=== PATIENT | female | born 1985 | race Caucasian/White ===

== ENCOUNTER 2018-07-04 11:27 | Inpatient (IN) | payer MEDICAID, OTHER ==
[2018-07-04] MEDS ORDERED: ACETAMINOPHEN 325 MG TABLET PO ONE (11:38)
[2018-07-04] MEDS ORDERED: NORMAL SALINE 1000 ML 1,000 ML IV ONE (12:33)
[2018-07-04] MEDS ORDERED: LORAZEPAM INJ 2 MG/1 ML VIAL IV ONE ×3 (12:43→16:47)
--- NOTE | 2018-07-04 12:44 | ER Document Report ---
ED General - General Mode of Arrival: Medic Information source: Patient <EMMANUELLE GOMEZANNIE - Last Filed: 07/04/18 19:07> <BERNIE MAYNARD - Last Filed: 07/04/18 19:09> - General Chief Complaint: Tremor Stated Complaint: ANXIETY Time Seen by Provider: 07/04/18 12:32 Notes: Patient is a 32 year old female with a history of bipolar disorder, borderline personality disorder, depression, anxiety, epilepsy presents to the emergency department complaining of anxiety and tremors further stating she is in alcohol withdrawal. Patient states she feels her nerves are shot due to her ex- taking custody of her kids and recently being evicted. She states she has a history of alcohol abuse and has been continuously consuming alcohol. She states she would constantly take shots from the moment she wakes up to the moment she goes to bed. She states she has not had a drink in 2 days and began to have tremors yesterday evening, worsening today. She also complains of diaphoresis, chills, auditory hallucinations, numbness of lips, sore throat, nausea, vomiting, chest pain, diffuse abdominal pain, constipation and a foul urine odor which is orange in appearance. Patient denies any diarrhea. Patient mentions her last seizure was approximately 1 year ago. (DIEGO GOMEZ ) - Related Data Allergies/Adverse Reactions: aripiprazole [From Abilify] Allergy (Verified 07/04/18 11:29) pregabalin [From Lyrica] Allergy (Verified 07/04/18 11:29) tramadol Allergy (Verified 07/04/18 11:29) Past Medical History - General Information source: Patient - Social History Smoking Status: Current Every Day Smoker Chew tobacco use (# tins/day): No Frequency of alcohol use: Heavy Drug Abuse: Marijuana Patient has suicidal ideation: Yes Patient has homicidal ideation: No Pulmonary Medical History: Reports: Hx Asthma Neurological Medical History: Reports: Hx Seizures GI Medical History: Reports: Hx Gastroesophageal Reflux Disease Musculoskeletal Medical History: Reports Hx Arthritis Psychiatric Medical History: Reports: Hx Depression - BIPOLAR BORDERLINE PERSONALITY Past Surgical History: Reports: Hx Section - X 3, Hx Hysterectomy <DIEGO GOMEZ - Last Filed: 07/04/18 19:07> - Social History Family History: Reviewed & Not Pertinent <BERNIE MAYNARD - Last Filed: 07/04/18 19:09> Review of Systems - Review of Systems Constitutional: See HPI, Chills, Diaphoresis EENT: See HPI, Throat pain Cardiovascular: See HPI, Chest pain Respiratory: No symptoms reported Gastrointestinal: See HPI, Nausea, Vomiting, Constipation Genitourinary: See HPI Female Genitourinary: No symptoms reported Musculoskeletal: See HPI Skin: No symptoms reported Hematologic/Lymphatic: No symptoms reported Neurological/Psychological: See HPI, Hallucinations, Numbness, Tingling -: Yes All other systems reviewed and negative <DIEGO GOMEZ - Last Filed: 07/04/18 19:07> Physical Exam <DIEGO GOMEZ - Last Filed: 07/04/18 19:07> <BERNIE MAYNARD - Last Filed: 07/04/18 19:09> - Vital signs Vitals: Temp Pulse Resp BP Pulse Ox 102.3 F H 162 H 20 137/95 H 94 07/04/18 11:34 07/04/18 11:34 07/04/18 11:34 07/04/18 11:34 07/04/18 11:34 - Notes Notes: GENERAL: Alert, anxious, actively shaking. No acute distress. HEAD: Normocephalic, atraumatic. EYES: Pupils equal, round, and reactive to light. Extraocular movements intact. ENT: Oral mucosa moist, tongue midline. Slight rhinorrhea. NECK: Full range of motion. Supple. Trachea midline. LUNGS: Clear to auscultation bilaterally, no wheezes, rales, or rhonchi. No respiratory distress. HEART: Tachycardic. Rate is approximately 120 at the time of my exam. No murmurs , gallops, or rubs. ABDOMEN: Soft, epigastric and periumbilical region tender to palpation. Non- distended. Bowel sounds present in all 4 quadrants. EXTREMITIES: Moves all 4 extremities spontaneously. No edema, radial and dorsalis pedis pulses 2/4 bilaterally. No cyanosis. NEUROLOGICAL: Alert and oriented x3. Normal speech. Active shaking consistent with tremors from alcohol withdrawal. PSYCH: Slightly tearful. Cooperative. SKIN: Hot to touch. Diaphoretic. No rashes or lesions noted. (DIEGO GOMEZ) Course - Laboratory Result Diagrams: 07/04/18 12:18 07/04/18 12:18 <DIEGO GOMEZ - Last Filed: 07/04/18 19:07> - Laboratory Result Diagrams: 07/04/18 12:18 07/04/18 12:18 <BERNIE MAYNARD - Last Filed: 07/04/18 19:09> - Re-evaluation Re-evalutation: 07/04/18 14:05 Patient began to seize when obtaining urine sample and fell face forward on the bathroom floor. There was active bleeding from nose. Patient was moved to a trauma bay and re-examined. (DIEGO GOMEZ) 07/04/18 16:09 On arrival patient was quite tremulous, warm to the touch, initial etiology was somewhat blurry as she appears to both be an alcohol withdrawal and have some form of infection. CBC shows low white blood cell count at 3.2, platelets low at 88 otherwise unremarkable, INR normal, venous blood gas shows an elevated pH surprisingly at 7.5 to, chemistries are grossly abnormal, sodium slightly low at 136.9 consistent with history of alcohol abuse, potassium low at 3.1, anion gap somewhat elevated at 21 possibly related to alcoholic ketosis, lactic acid normal at 1.3, magnesium low at 1.3, both potassium and magnesium have been repeated through the IV, total and direct bilirubin are both elevated at 3.7 and 2.2 respectively, AST, ALT and alkaline phosphatase are all elevated at home also at 746, 306 and 150 respectively. CK and CK-MB unremarkable, lipase normal, test negative, urinalysis shows moderate leukocyte esterase which helps to explain where her source of infection and fevers coming from. Patient has been started on Rocephin. The ultrasound of the abdomen was undertaken to make sure there is no biliary process going on causing the LFT abnormalities and the fever. This was negative except for fatty infiltration of the liver and biliary sludge. No indication for surgery at this time. Alcohol level is 0. While the patient was giving a urine specimen she had a seizure and fell forward and hit her face on the bathroom floor. Patient was postictal for approximately 2 minutes and then came to, had a small amount of bleeding from her left nostril that stopped on its own, small amount of bleeding from a small laceration to the left side of her lower lip. Bleeding then stopped, this was not amenable to approximation as it was so small it was not necessary. Patient also had a laceration noted to lip. Dentures were removed and appeared undamaged. No damage noted to her teeth. I did give 2 mg more of Ativan after this seizure. Patient appears somewhat better. Patient was discussed with Dr. Scherer from hospitalist and agrees to admit the patient to his service. 07/04/18 16:47 Patient is becoming more tremulous now, 2 more milligrams of Ativan will be given IV. (BERNIE MAYNARD) - Vital Signs Vital signs: Temp Pulse Resp BP Pulse Ox 102.3 F H 162 H 18 126/90 H 97 07/04/18 11:34 07/04/18 11:34 07/04/18 19:01 07/04/18 18:00 07/04/18 17:01 - Laboratory Laboratory results interpreted by me: 07/04/18 07/04/18 07/04/18 12:18 12:18 13:30 WBC 3.2 L RBC 3.63 L MCV 104 H MCH 36.2 H Plt Count 88 L Seg Neuts % (Manual) 88 H Lymphocytes % (Manual) 7 L Abs Lymphs (Manual) 0.3 L VBG pH 7.52 H VBG pCO2 34.4 L Sodium 136.9 L Potassium 3.1 L Chloride 90 L Anion Gap 21 H Creatinine 0.45 L Glucose 161 H Magnesium 1.3 L Total Bilirubin 3.7 H Direct Bilirubin 2.2 H AST 764 H ALT 306 H Alkaline Phosphatase 150 H Urine Protein Urine Ketones Urine Blood Urine Urobilinogen Ur Leukocyte Esterase 07/04/18 13:50 WBC RBC MCV MCH Plt Count Seg Neuts % (Manual) Lymphocytes % (Manual) Abs Lymphs (Manual) VBG pH VBG pCO2 Sodium Potassium Chloride Anion Gap Creatinine Glucose Magnesium Total Bilirubin Direct Bilirubin AST ALT Alkaline Phosphatase Urine Protein 30 H Urine Ketones 80 H Urine Blood SMALL H Urine Urobilinogen 4.0 H Ur Leukocyte Esterase MODERATE H - EKG Interpretation by Me Additional EKG results interpreted by me: 07/04/18 16:48 EKG shows sinus tachycardia at a rate of 103, normal axis, normal intervals, no ST segment elevations no T-wave inversions, there is significant baseline artifact related to tremors. No evidence of acute ischemic changes per my interpretation. (BERNIE MAYNARD) Critical Care Note - Critical Care Note Total time excluding time spent on procedures (mins): 45 <BERNIE MAYNARD - Last Filed: 07/04/18 19:09> Discharge <DIEGO GOMEZ - Last Filed: 07/04/18 19:07> - Discharge Admitting Provider: [facility] Admitted: ICU <BERNIE MAYNARD - Last Filed: 07/04/18 19:09> - Discharge Clinical Impression: Seizure, Hypokalemia, Hypomagnesemia Alcohol withdrawal Qualifiers: Complication of substance-induced condition: uncomplicated Qualified Code(s): F10.230 - Alcohol dependence with withdrawal, uncomplicated Urinary tract infection Qualifiers: Urinary tract infection type: acute pyelonephritis Qualified Code(s): N10 - Acute pyelonephritis Condition: Fair Disposition: ADMITTED INPATIENT Scribe Attestation: 07/04/18 19:09 I personally performed the services described in the documentation, reviewed and edited the documentation which was dictated to the scribe in my presence, and it accurately records my words and actions. (BERNIE MAYNARD)
[2018-07-04 12:46] LABS: HEMATOCRIT 37.6 % (36.0-47.0); HEMOGLOBIN 13.1 g/dL (12.0-15.5); MEAN CORPUSCULAR HEMOGLOBIN 36.2 pg (27.0-33.4); MEAN CORPUSCULAR VOLUME 104 fl (80-97); PROTHROMBIN TIME 13.7 SEC (11.4-15.4); RED BLOOD COUNT 3.63 10^6/uL (3.72-5.28); RED CELL DISTRIBUTION WIDTH 13.1 % (11.5-14.0); WHITE BLOOD COUNT 3.2 10^3/uL (4.0-10.5)
[2018-07-04 13:04] LABS: ALANINE AMINOTRANSFERASE 306 U/L (9-52); ALBUMIN 4.6 g/dL (3.5-5.0); ALKALINE PHOSPHATASE 150 U/L (38-126); BILIRUBIN,DIRECT 2.2 mg/dL (0.0-0.4); BILIRUBIN,TOTAL 3.7 mg/dL (0.2-1.3); BLOOD UREA NITROGEN 12 mg/dL (7-20); CALCIUM 9.8 mg/dL (8.4-10.2); CREATINE KINASE 75 U/L (30-135); GLUCOSE 161 mg/dL (75-110); LIPASE 211.6 U/L (23-300); TOTAL PROTEIN 7.1 g/dL (6.3-8.2)
[2018-07-04 13:05] LABS: ALCOHOL < 10 mg/dL (NONE DETECTED)
--- NOTE | 2018-07-04 13:05 | RADIOLOGY REPORT (SQ) ---
EXAM DESCRIPTION: CHEST SINGLE VIEW COMPLETED DATE/TIME: 07/04/2018 12:53 pm REASON FOR STUDY: fever, tremors COMPARISON: None. EXAM PARAMETERS: NUMBER OF VIEWS: One view. TECHNIQUE: Single frontal radiographic view of the chest acquired. RADIATION DOSE: NA LIMITATIONS: None. FINDINGS: LUNGS AND PLEURA: No opacities, masses or pneumothorax. No pleural effusion. MEDIASTINUM AND HILAR STRUCTURES: No masses. Contour normal. HEART AND VASCULAR STRUCTURES: Heart normal in size. Normal vasculature. BONES: No acute findings. HARDWARE: None in the chest. OTHER: No other significant finding. IMPRESSION: NO ACUTE RADIOGRAPHIC FINDING IN THE CHEST. TECHNICAL DOCUMENTATION: JOB ID: [id number] [employer]- All Rights Reserved Reading location - IP/workstation name: [email or web address]
[2018-07-04 13:09] LABS: CARBON DIOXIDE 26 mmol/L (22-30); CHLORIDE 90 mmol/L (98-107); SODIUM 136.9 mmol/L (137-145)
[2018-07-04 13:12] LABS: ANION GAP 21 (5-19); ASPARTATE AMINO TRANSFERASE 764 U/L (14-36); POTASSIUM 3.1 mmol/L (3.6-5.0)
--- NOTE | 2018-07-04 13:15 | EKG REPORT ---
SEVERITY:- ABNORMAL ECG - ABNORMAL T, CONSIDER ISCHEMIA, LATERAL LEADS BASLINE ARTIFACT.PROBABLY SINUS RHYTHM : Confirmed by: Faby Meier MD 04-Jul-2018 13:14:42
[2018-07-04 13:17] LABS: PLATELET COUNT 88 10^3/uL (150-450)
[2018-07-04] MEDS ORDERED: POTASSIUM CHLORIDE 20 MEQ/15 ML UDCUP PO ONE (13:17)
[2018-07-04 13:20] LABS: ABSOLUTE LYMPHOCYTES# (MANUAL) 0.3 10^3/uL (0.5-4.7); ABSOLUTE MONOCYTES # (MANUAL) 0.1 10^3/uL (0.1-1.4); ABSOLUTE NEUTROPHILS# (MANUAL) 2.8 10^3/uL (1.7-8.2); BASOPHILS % (MANUAL) 1 % (0-2); EOSINOPHILS % (MANUAL) 0 % (0-6); LYMPHOCYTES % (MANUAL) 7 % (13-45); MONOCYTES % (MANUAL) 3 % (3-13); SEGMENTED NEUTROPHILS % (MAN) 88 % (42-78); TOTAL CELLS COUNTED 100
[2018-07-04 13:23] LABS: ROULEAUX SLIGHT
[2018-07-04 13:24] LABS: HYPOCHROMASIA 1+; PLATELET COMMENT DECREASED; POLYCHROMASIA SLIGHT; STOMATOCYTES 2+
[2018-07-04] MEDS ORDERED: DIPH/PERTUSS(ACELL)/TETANUS VAC/PF 0.5 ML SYR (>=10YO) IM ONE (13:58)
[2018-07-04 14:02] LABS: VENOUS BLOOD BASE EXCESS 4.9 mmol/L; VENOUS BLOOD HCO3 27.5 mmol/L (20-32); VENOUS BLOOD PCO2 34.4 mmHg (35-63); VENOUS BLOOD PH 7.52 (7.30-7.42)
[2018-07-04] MEDS ORDERED: MAGNESIUM SULFATE/D5W 1 GM/100 ML RTUPB IV ONE (14:18)
[2018-07-04] MEDS ORDERED: LIDOCAINE 4%/TETRACAINE 0.5%/EPI 0.18% 5 ML TOPICAL SOLN TOP ONE (14:19)
[2018-07-04 14:22] LABS: AMORPHOUS SEDIMENT,URINE TRACE /HPF; APPEARANCE,URINE CLOUDY; BILIRUBIN,URINE NEGATIVE (NEGATIVE); COLOR,URINE AMBER; GLUCOSE, URINE NEGATIVE (NEGATIVE); KETONES,URINE 80 mg/dL (NEGATIVE); LEUKOCYTE ESTERASE,URINE MODERATE (NEGATIVE); NITRITE,URINE NEGATIVE (NEGATIVE); PROTEIN,URINE 30 mg/dL (NEGATIVE); URINE SPECIFIC GRAVITY 1.017
[2018-07-04] MEDS: POTASSI CL 20 MEQ/50 ML RIDER 20 MEQ/50 ML RTUPB IV SCH ×2 (15:08→17:16)
[2018-07-04] MEDS ORDERED: CEFTRIAXONE 1 GM/D5W RTU 1 GM/50 ML RTUPB IV ONE (15:10)
[2018-07-04] MEDS ORDERED: LEVETIRACETAM 1000 MG/NACL-ISO 1,000 MG/100 ML RTUPB IV ONE (15:10)
[2018-07-04] MEDS ORDERED: RINGERS SOLUTION,LACTATED 1,000 ML IV ONE (15:18)
--- NOTE | 2018-07-04 15:49 | RADIOLOGY REPORT (SQ) ---
EXAM DESCRIPTION: U/S ABDOMEN LIMITED W/O DOP COMPLETED DATE/TIME: 07/04/2018 3:06 pm REASON FOR STUDY: vomiting, fever, ETOH history, elevated LFTs COMPARISON: None. TECHNIQUE: Dynamic and static grayscale images acquired of the abdomen and recorded on PACS. Romyo adelaida selected color Doppler and spectral images recorded. LIMITATIONS: None. FINDINGS: PANCREAS: No masses. No peripancreatic edema or fluid collections. LIVER: Echotexture is coarse with increased echogenicity consistent with fatty infiltration. LIVER VASCULATURE: Normal directional flow of the main portal vein. GALLBLADDER: No stones. There is increased echogenicity in the dependent portion of the gallbladder lumen consistent with biliary sludge. Normal wall thickness. No pericholecystic fluid. ULTRASOUND-DETECTED HARMON'S SIGN: Negative. INTRAHEPATIC DUCTS AND COMMON DUCT: CBD and intrahepatic ducts normal caliber. No filling defects. INFERIOR VENA CAVA: Normal flow. AORTA: No aneurysm. RIGHT KIDNEY: 12.0 cm in length Normal echogenicity. No solid or suspicious masses. No hydrone phrosis. No calcifications. PERITONEAL AND RIGHT PLEURAL SPACE: No ascites or effusions. OTHER: No other significant finding. IMPRESSION: FATTY INFILTRATION OF THE LIVER. No gallstones are identified. There is evidence for b iliary sludge. Other findings as noted above. TECHNICAL DOCUMENTATION: JOB ID: [id number] [employer]- All Rights Reserved Reading location - IP/workstation name: [email or web address]
[2018-07-04] MEDS ORDERED: CEFTRIAXONE INJ 1000 MG VIAL IV ONE (16:30)
[2018-07-04] MEDS ORDERED: CEFTRIAXONE INJ 1000 MG VIAL ONE (16:31)
--- NOTE | 2018-07-04 17:05 | PDOC H&P ---
History of Present Illness Admission Date/PCP: Seizure History of Present Illness: MONIQUE ROJAS is a 32 year old female who is an alcoholic. She drinks every day several drinks a day for several years. Apparently she is getting into a divorce and her is trying to take custody of her kids so she decided to stop drinking cold turkey 2 days ago. She was started to be anxious and tremulous and earlier today she developed a seizure and actually in the emergency room she apparently fell on her face and lacerated her lips. Past Medical History Pulmonary Medical History: Reports: Asthma Neurological Medical History: Reports: Seizures GI Medical History: Reports: Gastroesophageal Reflux Disease Musculoskeltal Medical History: Reports: Arthritis Psychiatric Medical History: Reports: Depression - BIPOLAR BORDERLINE PERSONALITY Past Surgical History Past Surgical History: Reports: Section - X 3, Hysterectomy Social History Smoking Status: Current Every Day Smoker Family History Family History: Reviewed & Not Pertinent Parental Family History Reviewed: Yes Children Family History Reviewed: Yes Sibling(s) Family History Reviewed.: Yes Medication/Allergy Home Medications: Sertraline HCl [Zoloft] 25 mg PO DAILY 07/04/18 Allergies/Adverse Reactions: aripiprazole [From Abilify] Allergy (Verified 07/04/18 11:29) pregabalin [From Lyrica] Allergy (Verified 07/04/18 11:29) tramadol Allergy (Verified 07/04/18 11:29) Review of Systems All systems: reviewed and no additional remarkable complaints except as stated Physical Exam Vital Signs: Temp Pulse Resp BP Pulse Ox 102.3 F H 162 H 17 125/92 H 97 07/04/18 11:34 07/04/18 11:34 07/04/18 16:00 07/04/18 15:02 07/04/18 16:00 Intake & Output 07/03/18 07/04/18 07/05/18 06:59 06:59 06:59 Intake Total 2200 Balance 2200 Weight 89 lb 15.178 oz General appearance: PRESENT: no acute distress, cooperative Head exam: PRESENT: atraumatic Eye exam: PRESENT: EOMI, PERRLA. ABSENT: conjunctival injection, nystagmus, periorbital swelling Ear exam: PRESENT: normal external ear exam Mouth exam: PRESENT: other - The lips are swollen with lacerations Throat exam: ABSENT: post pharyngeal erythema Neck exam: ABSENT: carotid bruit, JVD, lymphadenopathy, thyromegaly Respiratory exam: PRESENT: clear to auscultation sarai. ABSENT: rales, rhonchi, wheezes Cardiovascular exam: PRESENT: RRR. ABSENT: diastolic murmur, rubs, systolic murmur Pulses: PRESENT: normal dorsalis pedis pul GI/Abdominal exam: PRESENT: normal bowel sounds, soft. ABSENT: distended, guarding, mass, organolmegaly, rebound, tenderness Extremities exam: PRESENT: full ROM. ABSENT: calf tenderness, clubbing, pedal edema Neurological exam: PRESENT: alert, awake, oriented to person, oriented to place , oriented to time, oriented to situation, CN II-XII grossly intact. ABSENT: motor sensory deficit Focused psych exam: PRESENT: psychomotor agitation, restlessness Results Laboratory Results: 07/04/18 12:18 07/04/18 12:18 07/04/18 07/04/18 07/04/18 12:18 12:18 12:18 WBC 3.2 L RBC 3.63 L Hgb 13.1 Hct 37.6 MCV 104 H MCH 36.2 H MCHC 35.0 RDW 13.1 Plt Count 88 L Seg Neutrophils % Not Reportable Lymphocytes % Not Reportable Monocytes % Not Reportable Eosinophils % Not Reportable Basophils % Not Reportable Absolute Neutrophils Not Reportable Absolute Lymphocytes Not Reportable Absolute Monocytes Not Reportable Absolute Eosinophils Not Reportable Absolute Basophils Not Reportable VBG pH VBG pCO2 VBG HCO3 VBG Base Excess Sodium 136.9 L Potassium 3.1 L Chloride 90 L Carbon Dioxide 26 Anion Gap 21 H BUN 12 Creatinine 0.45 L Est GFR ( Amer) > 60 Est GFR (Non-Af Amer) > 60 Glucose 161 H Lactic Acid Calcium 9.8 Magnesium 1.3 L Total Bilirubin 3.7 H AST 764 H ALT 306 H Alkaline Phosphatase 150 H Total Protein 7.1 Albumin 4.6 Lipase 211.6 Serum HCG, Qual NEGATIVE Urine Color Urine Appearance Urine pH Ur Specific [place] Urine Protein Urine Glucose (UA) Urine Ketones Urine Blood Urine Nitrite Ur Leukocyte Esterase Urine WBC (Auto) Urine RBC (Auto) 07/04/18 07/04/18 07/04/18 13:30 13:30 13:50 WBC RBC Hgb Hct MCV MCH MCHC RDW Plt Count Seg Neutrophils % Lymphocytes % Monocytes % Eosinophils % Basophils % Absolute Neutrophils Absolute Lymphocytes Absolute Monocytes Absolute Eosinophils Absolute Basophils VBG pH 7.52 H VBG pCO2 34.4 L VBG HCO3 27.5 VBG Base Excess 4.9 Sodium Potassium Chloride Carbon Dioxide Anion Gap BUN Creatinine Est GFR ( Amer) Est GFR (Non-Af Amer) Glucose Lactic Acid 1.3 Calcium Magnesium Total Bilirubin AST ALT Alkaline Phosphatase Total Protein Albumin Lipase Serum HCG, Qual Urine Color HOSSEIN Urine Appearance CLOUDY Urine pH 6.0 Ur Specific [place] 1.017 Urine Protein 30 H Urine Glucose (UA) NEGATIVE Urine Ketones 80 H Urine Blood SMALL H Urine Nitrite NEGATIVE Ur Leukocyte Esterase MODERATE H Urine WBC (Auto) 93 Urine RBC (Auto) 6 07/04/18 07/04/18 12:18 13:30 Creatine Kinase 75 CK-MB (CK-2) < 0.22 Impressions: Chest X-Ray 07/04/18 12:33 IMPRESSION: NO ACUTE RADIOGRAPHIC FINDING IN THE CHEST. Abdomen Ultrasound 07/04/18 13:17 IMPRESSION: FATTY INFILTRATION OF THE LIVER. No gallstones are identified. There is evidence for biliary sludge. Other findings as noted above. Assessment & Plan - Diagnosis (1) Alcohol withdrawal Qualifiers: Complication of substance-induced condition: uncomplicated Qualified Code(s ): F10.230 - Alcohol dependence with withdrawal, uncomplicated Is this a current diagnosis for this admission?: Yes Plan: Patient will be admitted to the ICU for close observation She had a seizure in the emergency room that was witnessed Treat with IV fluid hydration, IV thiamine and folic acid and multivitamin supplements Due to the severity of her withdrawal symptoms and amount of alcohol she drinks we will start her on scheduled Ativan every 4 hours We will decrease Ativan dose slowly over the next few days We will monitor for further signs or symptoms of withdrawal (2) Hypokalemia Is this a current diagnosis for this admission?: Yes Plan: Replace in the emergency room and we will monitor (3) Hypomagnesemia Is this a current diagnosis for this admission?: Yes Plan: Replaced and we will monitor (4) Seizure Is this a current diagnosis for this admission?: Yes Plan: Most likely due to alcohol withdrawal Will admit the patient to ICU with seizure precautions Ativan scheduled as above (5) Urinary tract infection Qualifiers: Urinary tract infection type: acute pyelonephritis Qualified Code(s): N10 - Acute pyelonephritis Is this a current diagnosis for this admission?: Yes Plan: Empiric ceftriaxone Check urine culture (6) Transaminasemia Is this a current diagnosis for this admission?: Yes Plan: Continue to alcohol abuse Ultrasound reviewed We will trend liver enzymes
[2018-07-04] MEDS: LORAZEPAM INJ 2 MG/1 ML VIAL IV SCH ×2 (17:56→20:42)
[2018-07-04] MEDS: NORMAL SALINE 1000 ML 1,000 ML IV PRN (19:08)
[2018-07-04] MEDS: THIAMINE HCL 100 MG, FOLIC ACID 1 MG in NORMAL SALINE 250 ML IV SCH (20:44)
[2018-07-05] MEDS: LORAZEPAM INJ 2 MG/1 ML VIAL IV SCH ×3 (02:04→09:58)
[2018-07-05] MEDS: NORMAL SALINE 1000 ML 1,000 ML IV PRN ×2 (02:07→15:52)
[2018-07-05 03:59] LABS: HEMATOCRIT 36.3 % (36.0-47.0); HEMOGLOBIN 12.6 g/dL (12.0-15.5); MEAN CORPUSCULAR HEMOGLOBIN 36.1 pg (27.0-33.4); MEAN CORPUSCULAR HGB CONC 34.7 g/dL (32.0-36.0); MEAN CORPUSCULAR VOLUME 104 fl (80-97); RED BLOOD COUNT 3.49 10^6/uL (3.72-5.28); RED CELL DISTRIBUTION WIDTH 13.2 % (11.5-14.0); WHITE BLOOD COUNT 2.9 10^3/uL (4.0-10.5)
[2018-07-05 04:14] LABS: ALANINE AMINOTRANSFERASE 268 U/L (9-52); ALBUMIN 3.9 g/dL (3.5-5.0); ALKALINE PHOSPHATASE 117 U/L (38-126); ANION GAP 13 (5-19); ASPARTATE AMINO TRANSFERASE 690 U/L (14-36); BILIRUBIN,DIRECT 2.1 mg/dL (0.0-0.4); BILIRUBIN,TOTAL 3.3 mg/dL (0.2-1.3); BLOOD UREA NITROGEN 5 mg/dL (7-20); CALCIUM 9.2 mg/dL (8.4-10.2); CARBON DIOXIDE 26 mmol/L (22-30); CHLORIDE 100 mmol/L (98-107); GLUCOSE 86 mg/dL (75-110); POTASSIUM 3.4 mmol/L (3.6-5.0); SODIUM 138.6 mmol/L (137-145); TOTAL PROTEIN 6.3 g/dL (6.3-8.2)
[2018-07-05 04:21] LABS: PLATELET COUNT 52 10^3/uL (150-450)
[2018-07-05] MEDS ORDERED: MAGNESIUM SULFATE/D5W 1 GM/100 ML RTUPB IV ONE (05:30)
[2018-07-05] MEDS ORDERED: POTASSIUM CHLORIDE 10 MEQ CAPSULE.ER PO ONE ×2 (06:00→07:30)
[2018-07-05] MEDS: SERTRALINE HCL 50 MG TABLET PO SCH (09:57)
[2018-07-05] MEDS ORDERED: CEFTRIAXONE 1 GM/D5W RTU 1 GM/50 ML RTUPB IV SCH (10:00)
[2018-07-05] MEDS ORDERED: CEFTRIAXONE SODIUM 1,000 MG in DEXTROSE 5%-WATER 50 ML IV SCH (10:00)
[2018-07-05] MEDS ORDERED: CEFTRIAXONE SODIUM 1,000 MG in NORMAL SALINE 50 ML IV SCH (10:00)
[2018-07-05] MEDS: ENOXAPARIN SODIUM INJ 30 MG/0.3 ML DISP.SYRIN SUBCUT SCH (10:00)
[2018-07-05] MEDS ORDERED: POTASSI CL 20 MEQ/50 ML RIDER 20 MEQ/50 ML RTUPB IV SCH (12:30)
[2018-07-05] MEDS ORDERED: VANCOMYCIN HCL 0 MG in DEXTROSE 5%-WATER 250 ML IV NR (12:45)
[2018-07-05] MEDS: VANCOMYCIN HCL 500 MG in NORMAL SALINE 100 ML IV SCH ×2 (14:15→22:06)
[2018-07-05] MEDS: NICOTINE 14 MG/24 HR PATCH.TD24 TD SCH (18:54)
[2018-07-05] MEDS: THIAMINE HCL 100 MG, FOLIC ACID 1 MG in NORMAL SALINE 250 ML IV SCH (22:06)
[2018-07-05] MEDS: LORAZEPAM INJ 2 MG/1 ML VIAL IV PRN (22:06)
--- NOTE | 2018-07-05 23:10 | PDOC PROGRESS REPORT ---
Subjective Progress Note for:: 07/05/18 Subjective:: The patient is quite lethargic, but is arouseable. No new complaints. Reason For Visit: ALCOHOL WITHDRAWL SYNDROME,SEIZURE,URINARY TRACT Physical Exam Vital Signs: Temp Pulse Resp BP Pulse Ox 98.4 F 105 H 17 123/88 H 97 07/05/18 17:27 07/05/18 17:27 07/05/18 18:00 07/05/18 17:27 07/05/18 17:27 Intake & Output 07/04/18 07/05/18 07/06/18 06:59 06:59 06:59 Intake Total 1099.2 1630 Output Total 1100 1350 Balance -0.8 280 Weight 40.5 kg General appearance: PRESENT: no acute distress, cooperative Head exam: PRESENT: normocephalic, other - Ecchymoses to left upper and lower lip. Eye exam: PRESENT: EOMI, other - no scleral injection. ABSENT: scleral icterus Neck exam: ABSENT: JVD, lymphadenopathy, tracheostomy Respiratory exam: PRESENT: other - No increased work of breathing. No wheezes, rales, or rhonchi. No tactile fremitus. Cardiovascular exam: PRESENT: other - No lateral PMI. No lateal PMI. Pulses: PRESENT: normal carotid pulses, normal dorsalis pedis pul GI/Abdominal exam: PRESENT: normal bowel sounds, soft. ABSENT: distended, mass , organolmegaly, tenderness Extremities exam: ABSENT: clubbing, joint swelling, tenderness Musculoskeletal exam: ABSENT: deformity, normal inspection, tenderness Neurological exam: PRESENT: alert, altered - Lethargic., awake, oriented to person, oriented to place, oriented to time, oriented to situation Skin exam: PRESENT: dry, intact, warm Results Laboratory Results: 07/05/18 03:48 07/05/18 03:48 07/05/18 07/05/18 03:48 03:48 WBC 2.9 L RBC 3.49 L Hgb 12.6 Hct 36.3 MCV 104 H MCH 36.1 H MCHC 34.7 RDW 13.2 Plt Count 52 L Sodium 138.6 Potassium 3.4 L Chloride 100 Carbon Dioxide 26 Anion Gap 13 BUN 5 L Creatinine 0.34 L Est GFR ( Amer) > 60 Est GFR (Non-Af Amer) > 60 Glucose 86 Calcium 9.2 Magnesium 1.9 Total Bilirubin 3.3 H AST 690 H ALT 268 H Alkaline Phosphatase 117 Total Protein 6.3 Albumin 3.9 Impressions: Chest X-Ray 07/04/18 12:33 IMPRESSION: NO ACUTE RADIOGRAPHIC FINDING IN THE CHEST. Abdomen Ultrasound 07/04/18 13:17 IMPRESSION: FATTY INFILTRATION OF THE LIVER. No gallstones are identified. There is evidence for biliary sludge. Other findings as noted above. Assessment & Plan - Diagnosis (1) Alcohol withdrawal Qualifiers: Complication of substance-induced condition: uncomplicated Qualified Code(s ): F10.230 - Alcohol dependence with withdrawal, uncomplicated Is this a current diagnosis for this admission?: Yes Plan: PRN ativan. Seiure precautions. No tremors. (2) Hypokalemia Is this a current diagnosis for this admission?: Yes Plan: Supplement and monitor. (3) Hypomagnesemia Is this a current diagnosis for this admission?: Yes Plan: Supplement and monitor. (4) Seizure Is this a current diagnosis for this admission?: Yes Plan: Secondary to ETOH withdrawal. (5) Transaminasemia Is this a current diagnosis for this admission?: Yes Plan: Alcoholic hepatitis. (6) Urinary tract infection Qualifiers: Urinary tract infection type: acute pyelonephritis Qualified Code(s): N10 - Acute pyelonephritis Is this a current diagnosis for this admission?: Yes Plan: IV antibiotics. - Time Time Spent with patient: 25-34 minutes Medications reviewed and adjusted accordingly: Yes - Inpatient Certification Based on my medical assessment, after consideration of the patient's comorbidities, presenting symptoms, or acuity I expect that the services needed warrant INPATIENT care.: Yes I certify that my determination is in accordance with my understanding of Medicare's requirements for reasonable and necessary INPATIENT services [42 CFR 412.3e].: Yes Medical Necessity: Need Close Monitoring Due to Risk of Patient Decompensation
[2018-07-06] MEDS: LORAZEPAM INJ 2 MG/1 ML VIAL IV PRN ×7 (03:02→22:38)
[2018-07-06] MEDS: VANCOMYCIN HCL 500 MG in NORMAL SALINE 100 ML IV SCH ×2 (05:10→15:28)
[2018-07-06] MEDS: ENOXAPARIN SODIUM INJ 30 MG/0.3 ML DISP.SYRIN SUBCUT SCH (10:15)
[2018-07-06] MEDS: SERTRALINE HCL 50 MG TABLET PO SCH (10:31)
[2018-07-06] MEDS: NICOTINE 14 MG/24 HR PATCH.TD24 TD SCH (10:32)
[2018-07-06 15:30] LABS: VANCOMYCIN,TROUGH < 5.0 ug/mL (5.0-20.0)
--- NOTE | 2018-07-06 19:07 | PDOC PROGRESS REPORT ---
Subjective Progress Note for:: 07/06/18 Subjective:: This morning the patient is again asserting that she wishes to leave the hospital AMA. She is tremulous and is pacing the floor appearing anxious. Reason For Visit: ALCOHOL WITHDRAWL SYNDROME,SEIZURE,URINARY TRACT Physical Exam Vital Signs: Temp Pulse Resp BP Pulse Ox 98.9 F 116 H 16 118/88 H 98 07/06/18 10:47 07/06/18 10:47 07/06/18 10:47 07/06/18 10:47 07/06/18 10:47 Intake & Output 07/05/18 07/06/18 07/07/18 06:59 06:59 06:59 Intake Total 1099.2 1830 100 Output Total 1100 2050 Balance -0.8 -220 100 Weight 40.5 kg 41.3 kg General appearance: PRESENT: other - The patient appears tremulous and anxious. Respiratory exam: PRESENT: other - No increased work of breathing. No wheezes, rales, or rhonchi. No tactile fremitus. Cardiovascular exam: PRESENT: RRR, tachycardia, other - No lateral PMI. No thrills.. ABSENT: gallop, rubs, systolic murmur Pulses: PRESENT: normal dorsalis pedis pul GI/Abdominal exam: PRESENT: normal bowel sounds, soft, other - Scaffoid.. ABSENT: hernia, mass, organolmegaly, tenderness Rectal exam: PRESENT: deferred Extremities exam: ABSENT: calf tenderness, joint swelling, tenderness Musculoskeletal exam: PRESENT: normal inspection. ABSENT: deformity, tenderness Neurological exam: PRESENT: alert, awake, oriented to person, oriented to place , oriented to time, oriented to situation, CN II-XII grossly intact. ABSENT: reflexes normal - Hyper-reflexia, motor sensory deficit Psychiatric exam: PRESENT: agitated, anxious, other - Tremulous Skin exam: PRESENT: dry, intact, warm, other - Ecchymoses to the patient's left lip and lower face. Results Laboratory Results: 07/05/18 03:48 07/05/18 03:48 Impressions: Chest X-Ray 07/04/18 12:33 IMPRESSION: NO ACUTE RADIOGRAPHIC FINDING IN THE CHEST. Abdomen Ultrasound 07/04/18 13:17 IMPRESSION: FATTY INFILTRATION OF THE LIVER. No gallstones are identified. There is evidence for biliary sludge. Other findings as noted above. Assessment & Plan - Diagnosis (1) Alcohol withdrawal Qualifiers: Complication of substance-induced condition: uncomplicated Qualified Code(s ): F10.230 - Alcohol dependence with withdrawal, uncomplicated Is this a current diagnosis for this admission?: Yes Plan: The patient continues to require high doses of IV ativan. At my visit she appears anxious and tremulous. (2) Hypokalemia Is this a current diagnosis for this admission?: Yes Plan: Supplement and monitor. (3) Hypomagnesemia Is this a current diagnosis for this admission?: Yes Plan: Supplement and monitor. (4) Seizure Is this a current diagnosis for this admission?: Yes Plan: Secondary to ETOH withdrawal. (5) Transaminasemia Is this a current diagnosis for this admission?: Yes Plan: Alcoholic hepatitis. (6) Urinary tract infection Qualifiers: Urinary tract infection type: acute pyelonephritis Qualified Code(s): N10 - Acute pyelonephritis Is this a current diagnosis for this admission?: Yes Plan: IV antibiotics. - Time Time Spent with patient: 35 or more minutes Medications reviewed and adjusted accordingly: Yes - Plan Summary Plan Summary: I discussed the patient's wish to leave AMA with the patient. I explained to her that she is still in withdrawal and would be at high risk for further and possibly fatal seizures if she left before she was out of withdrawal. She has agreed to remain inpatien to receive treatment.
[2018-07-06 19:37] LABS: ANION GAP 15 (5-19); BLOOD UREA NITROGEN 8 mg/dL (7-20); CALCIUM 9.9 mg/dL (8.4-10.2); CARBON DIOXIDE 23 mmol/L (22-30); CHLORIDE 100 mmol/L (98-107); GLUCOSE 77 mg/dL (75-110); POTASSIUM 3.4 mmol/L (3.6-5.0)
[2018-07-06] MEDS: THIAMINE HCL 100 MG, FOLIC ACID 1 MG in NORMAL SALINE 250 ML IV SCH (21:30)
[2018-07-06] MEDS ORDERED: VANCOMYCIN HCL 1,250 MG in DEXTROSE 5%-WATER 250 ML IV SCH (22:00)
[2018-07-07] MEDS: LORAZEPAM INJ 2 MG/1 ML VIAL IV PRN ×4 (01:23→21:46)
[2018-07-07] MEDS: ENOXAPARIN SODIUM INJ 30 MG/0.3 ML DISP.SYRIN SUBCUT SCH (09:36)
[2018-07-07] MEDS: NICOTINE 14 MG/24 HR PATCH.TD24 TD SCH (10:24)
[2018-07-07] MEDS: SERTRALINE HCL 50 MG TABLET PO SCH (10:24)
[2018-07-07 12:30] LABS: ABSOLUTE EOSINOPHILS # (AUTO) 0.1 10^3/uL (0.0-0.6); ABSOLUTE LYMPHOCYTES (AUTO) 0.5 10^3/uL (0.5-4.7); ABSOLUTE MONOCYTES (AUTO) 0.4 10^3/uL (0.1-1.4); ABSOLUTE NEUT (AUTO) 1.9 10^3/uL (1.7-8.2); BASOPHILS % (AUTO) 0.9 % (0-2); EOSINOPHILS % (AUTO) 4.6 % (0-6); HEMATOCRIT 35.2 % (36.0-47.0); HEMOGLOBIN 12.4 g/dL (12.0-15.5); LYMPHOCYTES % (AUTO) 17.8 % (13-45); MEAN CORPUSCULAR HEMOGLOBIN 37.3 pg (27.0-33.4); MEAN CORPUSCULAR HGB CONC 35.3 g/dL (32.0-36.0); MEAN CORPUSCULAR VOLUME 106 fl (80-97); MONOCYTES % (AUTO) 13.1 % (3-13); RED BLOOD COUNT 3.34 10^6/uL (3.72-5.28); RED CELL DISTRIBUTION WIDTH 12.5 % (11.5-14.0); SEGMENTED NEUTROPHILS % (AUTO) 63.6 % (42-78); TOTAL CELLS COUNTED % (AUTO) 100 %
[2018-07-07] MEDS: PIPERACILLIN SODIUM/TAZOBACTAM 3.375 GM in NORMAL SALINE 100 ML IV SCH ×3 (12:55→23:47)
[2018-07-07 12:56] LABS: ALANINE AMINOTRANSFERASE 157 U/L (9-52); ALBUMIN 3.5 g/dL (3.5-5.0); ALKALINE PHOSPHATASE 94 U/L (38-126); ANION GAP 12 (5-19); ASPARTATE AMINO TRANSFERASE 153 U/L (14-36); BILIRUBIN,DIRECT 1.7 mg/dL (0.0-0.4); BILIRUBIN,TOTAL 2.6 mg/dL (0.2-1.3); BLOOD UREA NITROGEN 10 mg/dL (7-20); CALCIUM 9.8 mg/dL (8.4-10.2); CARBON DIOXIDE 26 mmol/L (22-30); CHLORIDE 101 mmol/L (98-107); GLUCOSE 99 mg/dL (75-110); POTASSIUM 3.6 mmol/L (3.6-5.0); SODIUM 139.3 mmol/L (137-145); TOTAL PROTEIN 5.8 g/dL (6.3-8.2)
[2018-07-07 12:58] LABS: PLATELET COUNT 66 10^3/uL (150-450)
--- NOTE | 2018-07-07 17:51 | PDOC PROGRESS REPORT ---
Subjective Progress Note for:: 07/07/18 Subjective:: No new complaints. Reason For Visit: ALCOHOL WITHDRAWL SYNDROME,SEIZURE,URINARY TRACT Physical Exam Vital Signs: Temp Pulse Resp BP Pulse Ox 98.4 F 92 18 115/83 100 07/07/18 12:00 07/07/18 12:00 07/07/18 12:00 07/07/18 12:00 07/07/18 12:00 Intake & Output 07/06/18 07/07/18 07/08/18 06:59 06:59 06:59 Intake Total 2081 1235.2 100 Output Total 2050 Balance 31 1235.2 100 Weight 41.3 kg 42.6 kg General appearance: PRESENT: no acute distress, cooperative, thin Respiratory exam: PRESENT: other - No increased work of breathing. No wheezes, rales, or rhonchi. No tactile fremitus. Cardiovascular exam: PRESENT: RRR, other - No lateral PMI. No thrills.. ABSENT : gallop, rubs, systolic murmur Pulses: PRESENT: normal dorsalis pedis pul GI/Abdominal exam: PRESENT: normal bowel sounds, soft. ABSENT: hernia, mass, organolmegaly, tenderness Rectal exam: PRESENT: deferred Extremities exam: ABSENT: clubbing, pedal edema, tenderness Musculoskeletal exam: PRESENT: normal inspection. ABSENT: deformity, dislocation Neurological exam: PRESENT: alert, awake, oriented to person, oriented to place , oriented to time, oriented to situation, CN II-XII grossly intact. ABSENT: motor sensory deficit Psychiatric exam: PRESENT: anxious, depressed Skin exam: PRESENT: dry, intact, warm Results Laboratory Results: 07/07/18 12:07 07/07/18 12:07 07/06/18 07/07/18 07/07/18 13:57 12:07 12:07 WBC 3.0 L RBC 3.34 L Hgb 12.4 Hct 35.2 L MCV 106 H MCH 37.3 H MCHC 35.3 RDW 12.5 Plt Count 66 L Seg Neutrophils % 63.6 Lymphocytes % 17.8 Monocytes % 13.1 H Eosinophils % 4.6 Basophils % 0.9 Absolute Neutrophils 1.9 Absolute Lymphocytes 0.5 Absolute Monocytes 0.4 Absolute Eosinophils 0.1 Absolute Basophils 0.0 Sodium 138.0 139.3 Potassium 3.4 L 3.6 Chloride 100 101 Carbon Dioxide 23 26 Anion Gap 15 12 BUN 8 10 Creatinine 0.42 L 0.48 L Est GFR ( Amer) > 60 > 60 Est GFR (Non-Af Amer) > 60 > 60 Glucose 77 99 Calcium 9.9 9.8 Magnesium 1.9 Total Bilirubin 2.6 H AST 153 H ALT 157 H Alkaline Phosphatase 94 Total Protein 5.8 L Albumin 3.5 Impressions: Chest X-Ray 07/04/18 12:33 IMPRESSION: NO ACUTE RADIOGRAPHIC FINDING IN THE CHEST. Abdomen Ultrasound 07/04/18 13:17 IMPRESSION: FATTY INFILTRATION OF THE LIVER. No gallstones are identified. There is evidence for biliary sludge. Other findings as noted above. Assessment & Plan - Diagnosis (1) Alcohol withdrawal Qualifiers: Complication of substance-induced condition: uncomplicated Qualified Code(s ): F10.230 - Alcohol dependence with withdrawal, uncomplicated Is this a current diagnosis for this admission?: Yes Plan: The patient continues to require high doses of IV ativan. At my visit she appears anxious and tremulous. (2) Hypokalemia Is this a current diagnosis for this admission?: Yes Plan: Resolved. Will continue to monitor. (3) Hypomagnesemia Is this a current diagnosis for this admission?: Yes Plan: Resolved. (4) Seizure Is this a current diagnosis for this admission?: Yes Plan: Secondary to ETOH withdrawal. IV ativan prn. (5) Transaminasemia Is this a current diagnosis for this admission?: Yes Plan: Alcoholic hepatitis. LFT's declining. (6) Urinary tract infection Qualifiers: Urinary tract infection type: acute pyelonephritis Qualified Code(s): N10 - Acute pyelonephritis Is this a current diagnosis for this admission?: Yes Plan: Urine culture has grown out E. Coli. IV zosyn. (7) Gram-positive bacteremia Is this a current diagnosis for this admission?: Yes Plan: Will continue zosyn and vancomycin. Echocardiogram pending. - Time Time Spent with patient: 25-34 minutes Medications reviewed and adjusted accordingly: Yes - Inpatient Certification Based on my medical assessment, after consideration of the patient's comorbidities, presenting symptoms, or acuity I expect that the services needed warrant INPATIENT care.: Yes I certify that my determination is in accordance with my understanding of Medicare's requirements for reasonable and necessary INPATIENT services [42 CFR 412.3e].: Yes Medical Necessity: Need Close Monitoring Due to Risk of Patient Decompensation, Need for IV Antibiotics, Risk of Complication if Not Cared For in Hospital
[2018-07-07] MEDS: THIAMINE HCL 100 MG, FOLIC ACID 1 MG in NORMAL SALINE 250 ML IV SCH (21:41)
[2018-07-07] MEDS: POTASSIUM CHLORIDE 10 MEQ CAPSULE.ER PO SCH (21:45)
[2018-07-08] MEDS: POTASSIUM CHLORIDE 10 MEQ CAPSULE.ER PO SCH (01:05)
[2018-07-08] MEDS: LORAZEPAM INJ 2 MG/1 ML VIAL IV PRN (01:06)
[2018-07-08] MEDS: PIPERACILLIN SODIUM/TAZOBACTAM 3.375 GM in NORMAL SALINE 100 ML IV SCH ×3 (06:16→17:36)
[2018-07-08 06:17] LABS: ABSOLUTE BASOPHILS # (AUTO) 0.1 10^3/uL (0.0-0.2); ABSOLUTE EOSINOPHILS # (AUTO) 0.1 10^3/uL (0.0-0.6); ABSOLUTE LYMPHOCYTES (AUTO) 0.8 10^3/uL (0.5-4.7); ABSOLUTE MONOCYTES (AUTO) 0.5 10^3/uL (0.1-1.4); ABSOLUTE NEUT (AUTO) 1.5 10^3/uL (1.7-8.2); BASOPHILS % (AUTO) 2.7 % (0-2); EOSINOPHILS % (AUTO) 4.2 % (0-6); HEMATOCRIT 34.3 % (36.0-47.0); HEMOGLOBIN 11.9 g/dL (12.0-15.5); MEAN CORPUSCULAR HGB CONC 34.7 g/dL (32.0-36.0); MEAN CORPUSCULAR VOLUME 107 fl (80-97); MONOCYTES % (AUTO) 15.5 % (3-13); RED BLOOD COUNT 3.22 10^6/uL (3.72-5.28); RED CELL DISTRIBUTION WIDTH 12.7 % (11.5-14.0); SEGMENTED NEUTROPHILS % (AUTO) 50.6 % (42-78); TOTAL CELLS COUNTED % (AUTO) 100 %
[2018-07-08 06:39] LABS: ANION GAP 11 (5-19); BLOOD UREA NITROGEN 11 mg/dL (7-20); CALCIUM 9.7 mg/dL (8.4-10.2); CARBON DIOXIDE 26 mmol/L (22-30); CHLORIDE 104 mmol/L (98-107); GLUCOSE 95 mg/dL (75-110); POTASSIUM 4.1 mmol/L (3.6-5.0); SODIUM 141.3 mmol/L (137-145)
[2018-07-08 07:57] LABS: PLATELET COUNT 87 10^3/uL (150-450)
[2018-07-08] MEDS: NICOTINE 14 MG/24 HR PATCH.TD24 TD SCH (09:39)
[2018-07-08] MEDS: ENOXAPARIN SODIUM INJ 30 MG/0.3 ML DISP.SYRIN SUBCUT SCH (09:39)
[2018-07-08] MEDS: SERTRALINE HCL 50 MG TABLET PO SCH (09:39)
[2018-07-08] MEDS: LORAZEPAM 1 MG TABLET PO PRN ×2 (13:43→19:51)
[2018-07-08] MEDS: NORMAL SALINE 1000 ML 1,000 ML IV PRN (13:47)
--- NOTE | 2018-07-08 17:20 | PDOC PROGRESS REPORT ---
Subjective Progress Note for:: 07/08/18 Subjective:: The patient states that she feels tired today. No new complaints. Reason For Visit: ALCOHOL WITHDRAWL SYNDROME,SEIZURE,URINARY TRACT Physical Exam Vital Signs: Temp Pulse Resp BP Pulse Ox 98.8 F 73 16 98/68 L 97 07/08/18 07:30 07/08/18 07:30 07/08/18 07:30 07/08/18 07:30 07/08/18 07:30 Intake & Output 07/07/18 07/08/18 07/09/18 06:59 06:59 06:59 Intake Total 1235.2 2201.2 200 Balance 1235.2 2201.2 200 Weight 42.6 kg 44.3 kg General appearance: PRESENT: no acute distress, cooperative, disheveled Respiratory exam: PRESENT: other - No increased work of breathing. No wheezes, rales, or rhonchi. No tactile fremitus. Cardiovascular exam: PRESENT: RRR. ABSENT: gallop, rubs, tachycardia Pulses: PRESENT: normal dorsalis pedis pul GI/Abdominal exam: PRESENT: normal bowel sounds, soft. ABSENT: hernia, mass, organolmegaly, tenderness Rectal exam: PRESENT: deferred Extremities exam: ABSENT: clubbing, joint swelling, tenderness Musculoskeletal exam: PRESENT: normal inspection. ABSENT: deformity, dislocation Neurological exam: PRESENT: awake, oriented to person, oriented to place, oriented to time, oriented to situation, CN II-XII grossly intact, other - Somnolent.. ABSENT: motor sensory deficit Psychiatric exam: PRESENT: appropriate affect, normal mood Skin exam: PRESENT: dry, intact, warm Results Laboratory Results: 07/08/18 05:24 07/08/18 05:24 07/08/18 07/08/18 05:24 05:24 WBC 3.0 L RBC 3.22 L Hgb 11.9 L Hct 34.3 L MCV 107 H MCH 37.0 H MCHC 34.7 RDW 12.7 Plt Count 87 L Seg Neutrophils % 50.6 Lymphocytes % 27.0 Monocytes % 15.5 H Eosinophils % 4.2 Basophils % 2.7 H Absolute Neutrophils 1.5 L Absolute Lymphocytes 0.8 Absolute Monocytes 0.5 Absolute Eosinophils 0.1 Absolute Basophils 0.1 Sodium 141.3 Potassium 4.1 Chloride 104 Carbon Dioxide 26 Anion Gap 11 BUN 11 Creatinine 0.42 L Est GFR ( Amer) > 60 Est GFR (Non-Af Amer) > 60 Glucose 95 Calcium 9.7 Impressions: Chest X-Ray 07/04/18 12:33 IMPRESSION: NO ACUTE RADIOGRAPHIC FINDING IN THE CHEST. Abdomen Ultrasound 07/04/18 13:17 IMPRESSION: FATTY INFILTRATION OF THE LIVER. No gallstones are identified. There is evidence for biliary sludge. Other findings as noted above. Assessment & Plan - Diagnosis (1) Alcohol withdrawal Qualifiers: Complication of substance-induced condition: uncomplicated Qualified Code(s ): F10.230 - Alcohol dependence with withdrawal, uncomplicated Is this a current diagnosis for this admission?: Yes Plan: The patient is lethargic and certainly less tremulous today. I will stop IV ativan and decrease the dose by half. (2) Hypokalemia Is this a current diagnosis for this admission?: Yes Plan: Resolved. Will continue to monitor. (3) Hypomagnesemia Is this a current diagnosis for this admission?: Yes Plan: Resolved. (4) Seizure Is this a current diagnosis for this admission?: Yes Plan: Secondary to ETOH withdrawal. PO ativan now on an as needed basis. (5) Transaminasemia Is this a current diagnosis for this admission?: Yes Plan: Alcoholic hepatitis. LFT's declining. (6) Urinary tract infection Qualifiers: Urinary tract infection type: acute pyelonephritis Qualified Code(s): N10 - Acute pyelonephritis Is this a current diagnosis for this admission?: Yes Plan: Urine culture has grown out E. Coli. IV zosyn. (7) Gram-positive bacteremia Is this a current diagnosis for this admission?: Yes Plan: I received call from [facility] today that infact the culture grew out staph hominis which is probably a contaminant. I have ordered repeat blood cultures. Continue Zosyn for UTI. - Time Time Spent with patient: 25-34 minutes Medications reviewed and adjusted accordingly: Yes
[2018-07-08] MEDS: THIAMINE HCL 100 MG, FOLIC ACID 1 MG in NORMAL SALINE 250 ML IV SCH (19:51)
[2018-07-09] MEDS: PIPERACILLIN SODIUM/TAZOBACTAM 3.375 GM in NORMAL SALINE 100 ML IV SCH ×3 (00:22→12:27)
[2018-07-09] MEDS: LORAZEPAM 1 MG TABLET PO PRN ×2 (00:23→10:11)
[2018-07-09] MEDS: ENOXAPARIN SODIUM INJ 30 MG/0.3 ML DISP.SYRIN SUBCUT SCH (09:24)
[2018-07-09] MEDS: SERTRALINE HCL 50 MG TABLET PO SCH (09:24)
[2018-07-09] MEDS: NICOTINE 14 MG/24 HR PATCH.TD24 TD SCH (09:24)
[2018-07-09 11:54] LABS: ANION GAP 9 (5-19); BLOOD UREA NITROGEN 7 mg/dL (7-20); CALCIUM 9.3 mg/dL (8.4-10.2); CARBON DIOXIDE 28 mmol/L (22-30); CHLORIDE 103 mmol/L (98-107); GLUCOSE 110 mg/dL (75-110); POTASSIUM 3.5 mmol/L (3.6-5.0); SODIUM 140.4 mmol/L (137-145)
--- NOTE | 2018-07-09 12:36 | RADIOLOGY REPORT (SQ) ---
EXAM DESCRIPTION: FACIAL BONES COMPLETED DATE/TIME: 07/09/2018 12:28 pm REASON FOR STUDY: facial pain and unable to open jaw following sz COMPARISON: None. NUMBER OF VIEWS: Three view. TECHNIQUE: Images of the facial bones acquired. LIMITATIONS: None. FINDINGS: ORBITS: No fracture. No foreign body. SINUSES: No mucosal thickening. No air fluid levels. FACIAL BONES: No fracture. OTHER: No other significant finding. IMPRESSION: NO FOREIGN BODY OR FRACTURE OF THE FACIAL BONES. TECHNICAL DOCUMENTATION: JOB ID: [id number] [facility]- All Rights Reserved Reading location - IP/workstation name: [email or web address]
[2018-07-09 13:50] VITALS: BP 114/75
--- NOTE | 2018-08-08 05:59 | PDOC DISCHARGE SUMMARY ---
General - Admit/Disc Date/PCP Admission Date/Primary Care Provider: 07/04/18 16:59 Discharge Date: 07/09/18 - Discharge Diagnosis (1) Alcohol withdrawal Is this a current diagnosis for this admission?: Yes (2) Hypokalemia Is this a current diagnosis for this admission?: Yes (3) Hypomagnesemia Is this a current diagnosis for this admission?: Yes (4) Seizure Is this a current diagnosis for this admission?: Yes (5) Transaminasemia Is this a current diagnosis for this admission?: Yes (6) Urinary tract infection Is this a current diagnosis for this admission?: Yes (7) Gram-positive bacteremia Is this a current diagnosis for this admission?: Yes - Additional Information Resuscitation Status: Full Code Discharge Diet: Regular Discharge Activity: No Driving Prescriptions: Folic Acid 1 mg PO DAILY #30 tablet Lorazepam [Ativan 1 mg Tablet] 1 mg PO Q6HP PRN #20 tablet PRN Reason: Anxiety/Agitation Nicotine [Nicoderm 14 mg/24 Hr Transdermal Patch] 1 each TD DAILY #30 patch.td24 Sertraline HCl [Zoloft 50 mg Tablet] 25 mg PO DAILY #30 tablet Thiamine HCl [Thiamine 100 mg Tablet] 100 mg PO DAILY #30 tablet Home Medications: Cholecalciferol (Vitamin D3) [Vitamin D3] 1,000 unit PO DAILY 07/04/18 Multivitamin [Tab-A-Aldair (Multiple Vitamin) Tablet] 1 tab PO DAILY 07/04/18 Folic Acid 1 mg PO DAILY #30 tablet 07/09/18 Lorazepam [Ativan 1 mg Tablet] 1 mg PO Q6HP PRN #20 tablet 07/09/18 Nicotine [Nicoderm 14 mg/24 Hr Transdermal Patch] 1 each TD DAILY #30 patch.td24 07/09/18 Sertraline HCl [Zoloft 50 mg Tablet] 25 mg PO DAILY #30 tablet 07/09/18 Thiamine HCl [Thiamine 100 mg Tablet] 100 mg PO DAILY #30 tablet 07/09/18 Chlordiazepoxide HCl [Librium 25 mg Capsule] 1 cap PO ASDIR PRN #25 capsule 04/15 History of Present Illness History of Present Illness: MONIQUE ROJAS is a 32 year old female who is an alcoholic. She drinks every day several drinks a day for several years. Apparently she is getting into a divorce and her is trying to take custody of her kids so she decided to stop drinking cold turkey 2 days ago. She was started to be anxious and tremulous and earlier today she developed a seizure and actually in the emergency room she apparently fell on her face and lacerated her lips. Hospital Course Hospital Course: The patient was admitted. She was giveniV fluids and was placed on an alcohol withdrawal protocol. Her withdrawal symptoms improved. On the day of discharge the patient was complaining of pain in her jaw and difficulty moving her jaw. An x-ray of her facial bones was performed and was negative for fracture of dislocation. She was discharged to home in fair condition. Physical Exam Vital Signs: Temp Pulse Resp BP Pulse Ox 98.4 F 91 17 114/75 99 07/09/18 13:45 07/09/18 13:45 07/09/18 13:45 07/09/18 13:45 07/09/18 13:45 General appearance: PRESENT: no acute distress, cooperative, disheveled Respiratory exam: PRESENT: other - No increased work of breathing.. ABSENT: rales, rhonchi, wheezes Cardiovascular exam: PRESENT: RRR. ABSENT: gallop, rubs, systolic murmur GI/Abdominal exam: PRESENT: soft. ABSENT: distended, hernia, organolmegaly, tenderness Extremities exam: ABSENT: clubbing, pedal edema, tenderness Musculoskeletal exam: PRESENT: normal inspection. ABSENT: deformity, dislocation, tenderness Neurological exam: PRESENT: alert, awake, oriented to person, oriented to place , oriented to time, oriented to situation, CN II-XII grossly intact, normal gait. ABSENT: motor sensory deficit Psychiatric exam: PRESENT: appropriate affect, normal mood Skin exam: PRESENT: dry, intact, warm Results Laboratory Results: 07/08/18 05:24 07/09/18 11:15 Impressions: Chest X-Ray 07/04/18 12:33 IMPRESSION: NO ACUTE RADIOGRAPHIC FINDING IN THE CHEST. Abdomen Ultrasound 07/04/18 13:17 IMPRESSION: FATTY INFILTRATION OF THE LIVER. No gallstones are identified. There is evidence for biliary sludge. Other findings as noted above. Facial Bones X-Ray 07/09/18 00:00 IMPRESSION: NO FOREIGN BODY OR FRACTURE OF THE FACIAL BONES. Qualifiers - * PATIENT BEING DISCHARGED WITH ANY OF THE FOLLOWING DIAGNOSIS: No
== END 2018-07-09 14:35 | disposition home or self-care (01) | DRG 897 ==
LOC: ER 11:27 → EH 16:59 → ICU 22:20 → 4S 07-06 09:30
PROVIDERS: ADMIT Family Medicine; ATTEND Family Medicine
PROC: 3E0234Z Introduction of Serum, Toxoid and Vaccine into Muscle, Percutaneous Approach (ICD-10-PCS; principal; 2018-07-04)
DX: F10.231 Alcohol dependence with withdrawal delirium (principal); N10 Acute pyelonephritis; N39.0 Urinary tract infection, site not specified; R78.81 Bacteremia; R56.9 Unspecified convulsions; Y90.0 Blood alcohol level of less than 20 mg/100 ml; W18.39XA Other fall on same level, initial encounter; J45.909 Unspecified asthma, uncomplicated; K21.9 Gastro-esophageal reflux disease without esophagitis; M19.90 Unspecified osteoarthritis, unspecified site; F60.3 Borderline personality disorder; F31.9 Bipolar disorder, unspecified; F17.210 Nicotine dependence, cigarettes, uncomplicated; E87.6 Hypokalemia; E83.42 Hypomagnesemia; R74.0 Nonspecific elevation of levels of transaminase and lactic acid dehydrogenase [LDH]; K70.10 Alcoholic hepatitis without ascites; W18.30XA Fall on same level, unspecified, initial encounter; S01.511A Laceration without foreign body of lip, initial encounter; K70.0 Alcoholic fatty liver; Z23 Encounter for immunization; Z90.710 Acquired absence of both cervix and uterus; Z63.5 Disruption of family by separation and divorce; Z79.899 Other long term (current) drug therapy; Z88.8 Allergy status to other drugs, medicaments and biological substances; Z88.6 Allergy status to analgesic agent; Y92.012 Bathroom of single-family (private) house as the place of occurrence of the external cause
CPT/HCPCS: 36415; 70150; 71045; 76705; 80048; 80053; 80202; 80307; 81001; 82550; 82553; 82803; 83605; 83690; 83735; 84703; 85025; 85027; 85610; 87040; 87077; 87086; 87088; 87186; 90471; 90715; 93005; 93010; 96365; 96367; 96368; 96375; 99291; J0696; J1953; J2060; J2543; J3370; J3411; J3475; J3480; J3490; J7030; J7050; J7060; J7120

== ENCOUNTER 2018-08-03 19:23 | Emergency (ER) | payer OTHER ==
[2018-08-03] MEDS ORDERED: NORMAL SALINE 1000 ML 1,000 ML IV ONE (20:22)
--- NOTE | 2018-08-03 20:25 | ER Document Report ---
ED General - General Chief Complaint: ETOH Abuse Stated Complaint: ETOH Time Seen by Provider: 08/03/18 20:08 Notes: Patient is a 32 year old female that comes to the ED for chief complaint of wanting alcohol detox, states that she drinks alcohol heavily daily, has alcohol withdrawals, last ETOH was 10 AM today. She states she has had seizures in the past, specifically with alcohol withdrawal, but she is not on antiepileptics. She reports chills over the past 2 days, tingling in her lips, and some jitteriness, denies any other symptoms. She states she went to [facility] for substance abuse help and they told her "to come here for detox first". She denies SI or HI. Boyfriend at bedside. TRAVEL OUTSIDE OF THE [place] IN LAST 30 DAYS: No - Related Data Allergies/Adverse Reactions: aripiprazole [From Abilify] Allergy (Verified 08/03/18 19:24) pregabalin [From Lyrica] Allergy (Verified 08/03/18 19:24) tramadol Allergy (Verified 08/03/18 19:24) Past Medical History - General Information source: Patient - Social History Smoking Status: Current Every Day Smoker Chew tobacco use (# tins/day): No Frequency of alcohol use: Heavy Drug Abuse: Marijuana Family History: Reviewed & Not Pertinent Patient has suicidal ideation: No Patient has homicidal ideation: No Pulmonary Medical History: Reports: Hx Asthma Neurological Medical History: Reports: Hx Seizures Renal/ Medical History: Denies: Hx Peritoneal Dialysis GI Medical History: Reports: Hx Gastroesophageal Reflux Disease Musculoskeletal Medical History: Reports Hx Arthritis Psychiatric Medical History: Reports: Hx Depression - BIPOLAR BORDERLINE PERSONALITY Past Surgical History: Reports: Hx Section - X 3, Hx Hysterectomy Review of Systems - Review of Systems Constitutional: No symptoms reported EENT: No symptoms reported Cardiovascular: No symptoms reported Respiratory: No symptoms reported Gastrointestinal: No symptoms reported Genitourinary: No symptoms reported Female Genitourinary: No symptoms reported Musculoskeletal: No symptoms reported Skin: No symptoms reported Hematologic/Lymphatic: No symptoms reported Neurological/Psychological: See HPI Physical Exam - Vital signs Vitals: Temp Pulse Resp BP Pulse Ox 98.4 F 120 H 16 125/85 99 08/03/18 19:29 08/03/18 19:29 08/03/18 19:29 08/03/18 19:29 08/03/18 19:29 - Notes Notes: GENERAL: Alert, interacts well. No acute distress. Slightly smells of alcohol. HEAD: Normocephalic, atraumatic. EYES: Pupils equal, round, and reactive to light. Extraocular movements intact. ENT: Oral mucosa moist, tongue midline. Oral pharyngeal exam unremarkable. NECK: Full range of motion. Supple. Trachea midline. LUNGS: Clear to auscultation bilaterally, no wheezes, rales, or rhonchi. No respiratory distress. HEART: Regular rate and rhythm. No murmur ABDOMEN: Soft, non-tender. Non-distended. Bowel sounds present in all 4 quadrants. EXTREMITIES: Moves all 4 extremities spontaneously. No edema, normal radial and dorsalis pedis pulses bilaterally. No cyanosis. BACK: no cervical, thoracic, lumbar midline tenderness. No saddle anesthesia, normal distal neurovascular exam. NEUROLOGICAL: Alert and oriented x3. Normal speech without slurring of words. [ cranial nerves II through XII grossly intact]. PSYCH: Normal affect, normal mood. SKIN: Slightly flushed, otherwise unremarkable Course - Re-evaluation Re-evalutation: Patient is not tachycardic on my examination. EKG sinus rhythm with normal QTC , no T-wave inversions or ST segment changes in consecutive leads. CBC shows leukopenia which is consistent with prior, patient does not have a fever. Patient does not have any shaking, jitteriness, vomiting, she is well-appearing and alert despite having alcohol level of 250. Alcohol level seems to be sufficient and she is not experiencing any withdrawal symptoms per my evaluation. Chemistry shows mildly elevated LFTs with ALT less than AST consistent with reaction from alcohol. Urine suggest infection, I offered to treat her urinary tract infection, she declines, states she has no urinary symptoms, culture was placed. Discussed with patient and significant other in detail. We do not have detox available at this time, discussed psychiatry options, follow-up options. After discussion decision was made to discharge patient with [facility], she states that she will follow-up with her provider to get placed in a formal program, discussed return precautions including signs of withdrawal, patient and significant other state understanding and agreement. - Vital Signs Vital signs: Temp Pulse Resp BP Pulse Ox 98.4 F 98 18 125/81 100 08/03/18 22:15 08/03/18 22:15 08/03/18 22:15 08/03/18 22:15 08/03/18 22:15 - Laboratory Result Diagrams: 08/03/18 21:00 08/03/18 21:00 Laboratory results interpreted by me: 08/03/18 08/03/18 08/03/18 20:32 21:00 21:00 WBC 2.8 L RBC 3.54 L MCV 106 H MCH 36.8 H Plt Count 133 L Monocytes % 16.1 H Absolute Neutrophils 1.3 L Glucose 114 H Direct Bilirubin 0.5 H AST 182 H ALT 72 H Urine Blood SMALL H Ur Leukocyte Esterase SMALL H Salicylates < 1.0 L Acetaminophen < 10 L Discharge - Discharge Clinical Impression: Alcohol abuse Condition: Stable Disposition: HOME, SELF-CARE Additional Instructions: Your desire for detox is excellent and important for your health. Your evaluation at this time does not indicate alcohol withdrawals, we have provided you with Librium to take instead of drinking alcohol to help you detox. The alternative to this is following up closely with your provider to be placed in a detox program. Return if you worsen including uncontrollable shaking, vomiting, seizure, fever , or any other concerning or worsening symptoms. Prescriptions: Chlordiazepoxide HCl [Librium 25 mg Capsule] 1 cap PO ASDIR PRN #25 capsule PRN Reason:
[2018-08-03] MEDS ORDERED: NICOTINE 14 MG/24 HR PATCH.TD24 TD ONE (20:42)
[2018-08-03 21:02] LABS: AMORPHOUS SEDIMENT,URINE TRACE /HPF; APPEARANCE,URINE SLIGHTLY-CLOUDY; BILIRUBIN,URINE NEGATIVE (NEGATIVE); COLOR,URINE YELLOW; GLUCOSE, URINE NEGATIVE (NEGATIVE); KETONES,URINE NEGATIVE (NEGATIVE); LEUKOCYTE ESTERASE,URINE SMALL (NEGATIVE); NITRITE,URINE NEGATIVE (NEGATIVE); PROTEIN,URINE NEGATIVE (NEGATIVE); UROBILINOGEN,URINE NEGATIVE mg/dL (<2.0)
[2018-08-03 21:15] LABS: URINE AMPHETAMINES SCREEN NEGATIVE; URINE BARBITURATES SCREEN NEGATIVE; URINE BENZODIAZEPINES SCREEN NEGATIVE; URINE COCAINE SCREEN NEGATIVE; URINE MARIJUANA (THC) SCREEN NEGATIVE; URINE METHADONE SCREEN NEGATIVE; URINE PHENCYCLIDINE SCREEN NEGATIVE
[2018-08-03 21:22] LABS: ABSOLUTE LYMPHOCYTES (AUTO) 0.9 10^3/uL (0.5-4.7); ABSOLUTE MONOCYTES (AUTO) 0.4 10^3/uL (0.1-1.4); ABSOLUTE NEUT (AUTO) 1.3 10^3/uL (1.7-8.2); BASOPHILS % (AUTO) 1.2 % (0-2); EOSINOPHILS % (AUTO) 1.1 % (0-6); HEMATOCRIT 37.6 % (36.0-47.0); LYMPHOCYTES % (AUTO) 32.9 % (13-45); MEAN CORPUSCULAR HEMOGLOBIN 36.8 pg (27.0-33.4); MEAN CORPUSCULAR HGB CONC 34.7 g/dL (32.0-36.0); MEAN CORPUSCULAR VOLUME 106 fl (80-97); MONOCYTES % (AUTO) 16.1 % (3-13); PLATELET COUNT 133 10^3/uL (150-450); RED BLOOD COUNT 3.54 10^6/uL (3.72-5.28); SEGMENTED NEUTROPHILS % (AUTO) 48.7 % (42-78); TOTAL CELLS COUNTED % (AUTO) 100 %; WHITE BLOOD COUNT 2.8 10^3/uL (4.0-10.5)
[2018-08-03 21:42] LABS: ALANINE AMINOTRANSFERASE 72 U/L (9-52); ALBUMIN 4.4 g/dL (3.5-5.0); ALCOHOL 250 mg/dL (NONE DETECTED); ALKALINE PHOSPHATASE 80 U/L (38-126); ANION GAP 16 (5-19); ASPARTATE AMINO TRANSFERASE 182 U/L (14-36); BILIRUBIN,DIRECT 0.5 mg/dL (0.0-0.4); BILIRUBIN,TOTAL 0.6 mg/dL (0.2-1.3); BLOOD UREA NITROGEN 7 mg/dL (7-20); CALCIUM 8.5 mg/dL (8.4-10.2); CARBON DIOXIDE 23 mmol/L (22-30); CHLORIDE 102 mmol/L (98-107); GLUCOSE 114 mg/dL (75-110); POTASSIUM 3.9 mmol/L (3.6-5.0); SODIUM 140.7 mmol/L (137-145); TOTAL PROTEIN 6.8 g/dL (6.3-8.2)
[2018-08-03 21:45] LABS: ACETAMINOPHEN < 10 ug/mL (10-30); SALICYLATE < 1.0 mg/dL (2.0-20.0)
[2018-08-03] MEDS ORDERED: DIAZEPAM 5 MG TABLET PO ONE (21:57)
[2018-08-03 22:30] VITALS: BP 125/81
--- NOTE | 2018-08-04 08:20 | EKG REPORT ---
SEVERITY:- BORDERLINE ECG - SINUS RHYTHM BORDERLINE T ABNORMALITIES, ANT-LAT LEADS : Confirmed by: Adrian Garza MD 04-Aug-2018 07:34:04
== END 2018-08-03 22:19 | disposition home or self-care (01) ==
LOC: ER 19:23
DX: F10.10 Alcohol abuse, uncomplicated (principal); Y90.8 Blood alcohol level of 240 mg/100 ml or more; R68.83 Chills (without fever); R74.0 Nonspecific elevation of levels of transaminase and lactic acid dehydrogenase [LDH]; R20.2 Paresthesia of skin; F12.10 Cannabis abuse, uncomplicated; F17.200 Nicotine dependence, unspecified, uncomplicated; J45.909 Unspecified asthma, uncomplicated; D72.819 Decreased white blood cell count, unspecified; Z88.8 Allergy status to other drugs, medicaments and biological substances; Z88.5 Allergy status to narcotic agent; Z88.6 Allergy status to analgesic agent
CPT/HCPCS: 93005; 99284; 36415; 87086; 80307 ×4; 83735; 84703; 85025; 87088; 80053; 81001; 87186; 93010; J7030

== ENCOUNTER 2019-01-17 03:57 | Inpatient (IN) | payer OTHER ==
[2019-01-17] MEDS ORDERED: THIAMINE HCL INJ 200 MG/2 ML VIAL IV ONE (04:41)
[2019-01-17] MEDS ORDERED: DEXTROSE 5%-LACTATED RINGERS 1,000 ML IV ONE (04:41)
[2019-01-17] MEDS ORDERED: FAMOTIDINE INJ/PF 20 MG/2 ML SDV IV ONE (04:42)
[2019-01-17 04:47] LABS: ACETAMINOPHEN 20 ug/mL (10-30); ALANINE AMINOTRANSFERASE 147 U/L (9-52); ALBUMIN 4.8 g/dL (3.5-5.0); ALCOHOL 271 mg/dL (NONE DETECTED); ALKALINE PHOSPHATASE 202 U/L (38-126); BILIRUBIN,DIRECT 3.5 mg/dL (0.0-0.4); BILIRUBIN,TOTAL 4.4 mg/dL (0.2-1.3); BLOOD UREA NITROGEN 11 mg/dL (7-20); CALCIUM 8.7 mg/dL (8.4-10.2); GLUCOSE 144 mg/dL (75-110); POTASSIUM 3.1 mmol/L (3.6-5.0); SALICYLATE 1.6 mg/dL (2.0-20.0); TOTAL PROTEIN 7.1 g/dL (6.3-8.2)
[2019-01-17 04:50] LABS: CARBON DIOXIDE 19 mmol/L (22-30); CHLORIDE 88 mmol/L (98-107); SODIUM 134.7 mmol/L (137-145)
[2019-01-17 04:52] LABS: ANION GAP 28 (5-19); ASPARTATE AMINO TRANSFERASE 1066 U/L (14-36)
[2019-01-17 05:21] LABS: INTERNATIONAL RATION (INR) 0.98; PROTHROMBIN TIME 13.5 SEC (11.4-15.4)
[2019-01-17] MEDS ORDERED: THIAMINE HCL INJ 200 MG/2 ML VIAL ONE (05:22)
--- NOTE | 2019-01-17 06:14 | RADIOLOGY REPORT (SQ) ---
EXAM DESCRIPTION: US ABDOMEN LIMITED COMPLETED DATE/TME: 01/17/2019 05:14 CLINICAL HISTORY: 33 years, Female, RUQ abd pain, alcoholism EXAM:Right upper quadrant abdomen ultrasound. CLINICAL HISTORY:33 years Female, RUQ abd pain, alcoholism TECHNIQUE: Grayscale and Doppler sonogram of the right upper quadrant abdomen. COMPARISON: None. FINDINGS: Pancreas: Not well visualized. Aorta: Visualized portion is unremarkable. IVC: Visualized portion is unremarkable. Liver: Heterogeneous echotexture. No focal lesion. Main portal vein: Normal hepatopetal flow. Gallbladder: No gallstones. No gallbladder wall thickening. Common bile duct: 0.4 cm. Right kidney: 11.5 cm. No hydronephrosis. No nephrolithiasis. IMPRESSION: No acute sonographic abnormality.
[2019-01-17 06:27] LABS: HEMATOCRIT 33.9 % (36.0-47.0); HEMOGLOBIN 12.1 g/dL (12.0-15.5); MEAN CORPUSCULAR HEMOGLOBIN 40.2 pg (27.0-33.4); MEAN CORPUSCULAR HGB CONC 35.8 g/dL (32.0-36.0); MEAN CORPUSCULAR VOLUME 113 fl (80-97); RED BLOOD COUNT 3.01 10^6/uL (3.72-5.28); RED CELL DISTRIBUTION WIDTH 17.6 % (11.5-14.0); WHITE BLOOD COUNT 2.5 10^3/uL (4.0-10.5)
[2019-01-17] MEDS ORDERED: ONDANSETRON HCL INJ/PF 4 MG/2 ML SDV IV ONE (06:27)
[2019-01-17] MEDS ORDERED: MORPHINE SULFATE 10 MG/ML INJ IV ONE (06:27)
[2019-01-17] MEDS ORDERED: HYDRALAZINE HCL INJ/PF 20 MG/1 ML SDV IV PRN (06:28)
[2019-01-17] MEDS ORDERED: DIAZEPAM INJ 10 MG/2 ML DISP.SYRIN IV ONE (06:28)
[2019-01-17] MEDS ORDERED: METHYLPREDNISOLONE INJ 125 MG/2 ML SDV IV ONE (06:28)
--- NOTE | 2019-01-17 06:29 | ER Document Report ---
Entered by DIEGO GOMEZ SCRIBE 01/17/19 0448 Acting as scribe for:KATHLEEN HERNANDEZ MD ED General - General Chief Complaint: ETOH Abuse Stated Complaint: ABDOMINAL PAIN Time Seen by Provider: 01/17/19 04:08 Mode of Arrival: Ambulatory Information source: Patient Notes: Patient is a 33 year old female with chronic alcoholism and epilepsy presents to the emergency department accompanied by boyfriend complaining of abdominal pain and back pain onset 4 days ago. Patient states the pain is located in her right upper quadrant and epigastric region that radiates into the right side of her back. Patient also complains of vomiting and decreased appetite. Boyfriend s tates the patient had a seizure and an episode of urinary incontinence on the way to the emergency department. Patient denies having an alcoholic beverage today. According to emergency nursing staff, patient appeared post ictal upon arrival to the emergency department. Patient states she is not currently taking any medications. TRAVEL OUTSIDE OF THE [place] IN LAST 30 DAYS: No - Related Data Allergies/Adverse Reactions: aripiprazole [From Abilify] Allergy (Verified 08/03/18 19:24) pregabalin [From Lyrica] Allergy (Verified 08/03/18 19:24) tramadol Allergy (Verified 08/03/18 19:24) Past Medical History - General Information source: Patient - Social History Smoking Status: Current Every Day Smoker Cigarette use (# per day): Yes Chew tobacco use (# tins/day): No Smoking Education Provided: No Frequency of alcohol use: Heavy Family History: Reviewed & Not Pertinent Pulmonary Medical History: Reports: Hx Asthma Neurological Medical History: Reports: Hx Seizures GI Medical History: Reports: Hx Gastroesophageal Reflux Disease Musculoskeletal Medical History: Reports Hx Arthritis Psychiatric Medical History: Reports: Hx Depression - BIPOLAR BORDERLINE PERS ONALITY Past Surgical History: Reports: Hx Section - X 3, Hx Hysterectomy Review of Systems - Review of Systems Constitutional: No symptoms reported EENT: No symptoms reported Cardiovascular: No symptoms reported Respiratory: No symptoms reported Gastrointestinal: See HPI, Abdominal pain, Nausea, Vomiting, Poor appetite Genitourinary: No symptoms reported Female Genitourinary: No symptoms reported Musculoskeletal: See HPI Skin: No symptoms reported Hematologic/Lymphatic: No symptoms reported Neurological/Psychological: No symptoms reported -: Yes All other systems reviewed and negative Physical Exam - Vital signs Vitals: Pulse Resp BP Pulse Ox 98 18 112/76 98 01/17/19 03:57 01/17/19 03:57 01/17/19 03:57 01/17/19 03:57 - Notes Notes: GENERAL: Alert, interacts well. No acute distress. HEAD: Normocephalic, atraumatic. EYES: Pupils equal, round, and reactive to light. Extraocular movements intact. ENT: Oral mucosa moist, tongue midline. Strong ketone odor. NECK: Full range of motion. Supple. Trachea midline. LUNGS: Clear to auscultation bilaterally, no wheezes, rales, or rhonchi. No respiratory distress. HEART: Regular rate and rhythm. No murmurs, gallops, or rubs. ABDOMEN: Soft, RUQ and epigastrium tender to palpation. Non-distended. Bowel sounds present in all 4 quadrants. EXTREMITIES: Moves all 4 extremities spontaneously. NEUROLOGICAL: Alert and oriented x3. Normal speech. PSYCH: Normal affect, normal mood. SKIN: Warm, dry, normal turgor. No rashes or lesions noted. Course - Vital Signs Vital signs: Temp Pulse Resp BP Pulse Ox 98.4 F 98 18 124/81 98 01/17/19 04:46 01/17/19 03:57 01/17/19 05:11 01/17/19 05:11 01/17/19 05:11 - Laboratory Result Diagrams: 01/17/19 04:20 01/17/19 04:20 Laboratory results interpreted by me: 01/17/19 01/17/19 04:20 04:20 Sodium 134.7 L Potassium 3.1 L Chloride 88 L Carbon Dioxide 19 L Anion Gap 28 H Glucose 144 H Total Bilirubin 4.4 H Direct Bilirubin 3.5 H AST 1066 H ALT 147 H Alkaline Phosphatase 202 H Lipase 3417.0 H Salicylates 1.6 L - Diagnostic Test Radiology reviewed: Reports reviewed - Right upper quadrant ultrasound was unremarkable. - Consults Dr. Ruano Time consulted: 06:18 Consulted provider: will come to ER Critical Care Note - Critical Care Note Total time excluding time spent on procedures (mins): 35 Discharge - Discharge Clinical Impression: Seizure Pancreatitis Qualifiers: Chronicity: acute Pancreatitis type: alcohol induced Acute pancreatitis complication: unspecified Qualified Code(s): K85.20 - Alcohol induced acute pancreatitis without necrosis or infection Alcohol intoxication Qualifiers: Complication of substance-induced condition: with unspecified complication Qualified Code(s): F10.929 - Alcohol use, unspecified with intoxication, unspecified Alcoholic hepatitis Qualifiers: Ascites presence: unspecified Qualified Code(s): K70.10 - Alcoholic hepatitis without ascites Condition: Stable Disposition: ADMITTED INPATIENT Admitting Provider: Hospitalist Unit Admitted: SERGIO Scribe Attestation: 01/17/19 05:15 I personally performed the services described in the documentation, reviewed and edited the documentation which was dictated to the scribe in my presence, and it accurately records my words and actions. I personally performed the services described in the documentation, reviewed and edited the documentation which was dictated to the scribe in my presence, and it accurately records my words and actions.
[2019-01-17] MEDS ORDERED: IPRATROPIUM/ALBUTEROL 0.5-2.5 MG/3 ML AMPUL NEB PRN (06:34)
[2019-01-17 07:05] LABS: PLATELET COUNT 70 10^3/uL (150-450)
[2019-01-17 07:09] LABS: ABSOLUTE LYMPHOCYTES# (MANUAL) 0.4 10^3/uL (0.5-4.7); ABSOLUTE MONOCYTES # (MANUAL) 0.3 10^3/uL (0.1-1.4); ABSOLUTE NEUTROPHILS# (MANUAL) 1.7 10^3/uL (1.7-8.2); ANISOCYTOSIS 2+; BASOPHILS % (MANUAL) 3 % (0-2); EOSINOPHILS % (MANUAL) 0 % (0-6); HYPOCHROMASIA 1+; LYMPHOCYTES % (MANUAL) 17 % (13-45); MONOCYTES % (MANUAL) 12 % (3-13); PAPPENHEIMER BODIES PRESENT; PLATELET COMMENT DECREASED; POLYCHROMASIA 1+; SEGMENTED NEUTROPHILS % (MAN) 68 % (42-78); TOTAL CELLS COUNTED 100; TOXIC GRANULATION 1+
--- NOTE | 2019-01-17 07:09 | PDOC H&P ---
History of Present Illness Patient complains of: Abdominal pain nausea History of Present Illness: MONIQUE ROJAS is a 33 year old female with a past medical history of alcohol dependence, seizure and marijuana use. She presents with 4 days of abdominal pain but continues alcohol. She denies fever chills but admits abdominal pain nausea vomiting of gastric material. She admits to several previous episodes. On previous attempts to discontinue alcohol she has had seizure. In the emergency department waiting room she has a tonic-clonic seizure despite a alcohol level of 270. Past Medical History Cardiac Medical History: Reports: None Pulmonary Medical History: Reports: Asthma EENT Medical History: Reports: None Neurological Medical History: Reports: Seizures Endocrine Medical History: Reports: None Renal/ Medical History: Reports: None Malignancy Medical History: Reports: None GI Medical History: Reports: Cirrhosis, Gastroesophageal Reflux Disease, Hepatitis Musculoskeltal Medical History: Reports: Arthritis Psychiatric Medical History: Reports: Alcohol Dependency, Depression - BIPOLAR BORDERLINE PERSONALITY, Substance Abuse, Tobacco Dependency Hematology: Reports: None Infectious Medical History: Reports: None Past Surgical History Past Surgical History: Reports: Section - X 3, Hysterectomy Social History Information Source: Patient Smoking Status: Current Every Day Smoker Frequency of Alcohol Use: Heavy Drugs: Marijuana - Advance Directive Resuscitation Status: Full Code Family History Family History: COPD Parental Family History Reviewed: Yes Children Family History Reviewed: Yes Sibling(s) Family History Reviewed.: Yes Medication/Allergy Home Medications: Cholecalciferol (Vitamin D3) [Vitamin D3] 1,000 unit PO DAILY 07/04/18 Multivitamin [Tab-A-Aldair (Multiple Vitamin) Tablet] 1 tab PO DAILY 07/04/18 Folic Acid 1 mg PO DAILY #30 tablet 07/09/18 Lorazepam [Ativan 1 mg Tablet] 1 mg PO Q6HP PRN #20 tablet 07/09/18 Nicotine [Nicoderm 14 mg/24 Hr Transdermal Patch] 1 each TD DAILY #30 patch.td24 07/09/18 Sertraline HCl [Zoloft 50 mg Tablet] 25 mg PO DAILY #30 tablet 07/09/18 Thiamine HCl [Thiamine 100 mg Tablet] 100 mg PO DAILY #30 tablet 07/09/18 Chlordiazepoxide HCl [Librium 25 mg Capsule] 1 cap PO ASDIR PRN #25 capsule 08/03/18 Allergies/Adverse Reactions: aripiprazole [From Abilify] Allergy (Verified 08/03/18 19:24) pregabalin [From Lyrica] Allergy (Verified 08/03/18 19:24) tramadol Allergy (Verified 08/03/18 19:24) Review of Systems Constitutional: PRESENT: as per HPI, anorexia, fatigue, weakness Eyes: ABSENT: visual disturbances Ears: ABSENT: hearing changes Cardiovascular: ABSENT: chest pain, dyspnea on exertion, edema, orthropnea, palpitations Respiratory: ABSENT: cough, hemoptysis Gastrointestinal: PRESENT: as per HPI, abdominal pain, bloating, nausea, vomiting. ABSENT: coffee ground emesis, diarrhea Genitourinary: ABSENT: dysuria, hematuria Musculoskeletal: ABSENT: joint swelling Integumentary: ABSENT: rash, wounds Neurological: PRESENT: convulsions, frequent falls, paresthesias. ABSENT: abnormal gait, abnormal speech, confusion, dizziness, focal weakness, syncope Psychiatric: PRESENT: depression Endocrine: ABSENT: cold intolerance, heat intolerance, polydipsia, polyuria Hematologic/Lymphatic: ABSENT: easy bleeding, easy bruising Physical Exam Vital Signs: Temp Pulse Resp BP Pulse Ox 98.4 F 98 18 124/81 98 01/17/19 04:46 01/17/19 03:57 01/17/19 05:11 01/17/19 05:11 01/17/19 05:11 Intake & Output 01/15/19 01/16/19 01/17/19 11:59 11:59 11:59 Intake Total 1000 Balance 1000 Weight 48 kg General appearance: PRESENT: cooperative, thin, other - Chronically ill appearing Head exam: PRESENT: atraumatic, normocephalic Eye exam: PRESENT: conjunctiva pink, EOMI, PERRLA. ABSENT: scleral icterus Ear exam: PRESENT: normal external ear exam Mouth exam: PRESENT: moist, tongue midline Neck exam: ABSENT: carotid bruit, JVD, lymphadenopathy, thyromegaly Respiratory exam: PRESENT: clear to auscultation sarai. ABSENT: rales, rhonchi, wheezes Cardiovascular exam: PRESENT: RRR. ABSENT: diastolic murmur, rubs, systolic murmur Pulses: PRESENT: normal dorsalis pedis pul Vascular exam: PRESENT: normal capillary refill GI/Abdominal exam: PRESENT: hyperactive bowel sounds, soft, tenderness. ABSENT: distended, firm, guarding, organolmegaly Rectal exam: PRESENT: deferred Extremities exam: PRESENT: full ROM. ABSENT: calf tenderness, clubbing, pedal edema Neurological exam: PRESENT: alert, altered, awake, oriented to person, oriented to place, oriented to time, oriented to situation, CN II-XII grossly intact. ABSENT: motor sensory deficit Psychiatric exam: PRESENT: unusual affect - Acute intoxication, other Skin exam: PRESENT: dry, intact, warm. ABSENT: cyanosis, rash Results Laboratory Results: 01/17/19 04:20 01/17/19 01/17/19 01/17/19 04:20 04:20 04:20 WBC Cancelled RBC Cancelled Hgb Cancelled Hct Cancelled MCV Cancelled MCH Cancelled MCHC Cancelled RDW Cancelled Plt Count Cancelled Seg Neutrophils % Cancelled Lymphocytes % Cancelled Monocytes % Cancelled Eosinophils % Cancelled Basophils % Cancelled Absolute Neutrophils Cancelled Absolute Lymphocytes Cancelled Absolute Monocytes Cancelled Absolute Eosinophils Cancelled Absolute Basophils Cancelled Sodium 134.7 L Potassium 3.1 L Chloride 88 L Carbon Dioxide 19 L Anion Gap 28 H BUN 11 Creatinine 0.66 Est GFR ( Amer) > 60 Est GFR (Non-Af Amer) > 60 Glucose 144 H Calcium 8.7 Magnesium Total Bilirubin 4.4 H AST 1066 H ALT 147 H Alkaline Phosphatase 202 H Total Protein 7.1 Albumin 4.8 Lipase Serum HCG, Qual NEGATIVE 01/17/19 04:20 WBC RBC Hgb Hct MCV MCH MCHC RDW Plt Count Seg Neutrophils % Lymphocytes % Monocytes % Eosinophils % Basophils % Absolute Neutrophils Absolute Lymphocytes Absolute Monocytes Absolute Eosinophils Absolute Basophils Sodium Potassium Chloride Carbon Dioxide Anion Gap BUN Creatinine Est GFR ( Amer) Est GFR (Non-Af Amer) Glucose Calcium Magnesium 2.2 Total Bilirubin AST ALT Alkaline Phosphatase Total Protein Albumin Lipase 3417.0 H Serum HCG, Qual Impressions: Abdomen Ultrasound 01/17/19 05:14 IMPRESSION: No acute sonographic abnormality. Assessment & Plan - Diagnosis (1) Alcoholic hepatitis Qualifiers: Ascites presence: unspecified Qualified Code(s): K70.10 - Alcoholic hepatitis without ascites Is this a current diagnosis for this admission?: Yes Plan: Ultrasound does not reveal ductal dilatation. Trial acetylcysteine, Solu- Medrol, thiamine and folate. Follow-up Chem-12, hepatitis profile and GI consult (2) Pancreatitis Qualifiers: Chronicity: acute Pancreatitis type: alcohol induced Acute pancreatitis complication: unspecified Qualified Code(s): K85.20 - Alcohol induced acute pancreatitis without necrosis or infection Is this a current diagnosis for this admission?: Yes Plan: Secondary to alcohol, supportive measures and bowel rest (3) Alcohol withdrawal Qualifiers: Complication of substance-induced condition: uncomplicated Qualified Co de(s): F10.230 - Alcohol dependence with withdrawal, uncomplicated Is this a current diagnosis for this admission?: Yes Plan: Thiamine, folate, Ativan as needed (4) Alcoholic intoxication Qualifiers: Complication of substance-induced condition: with unspecified complication Qualified Code(s): F10.929 - Alcohol use, unspecified with intoxication, unspecified Is this a current diagnosis for this admission?: Yes Plan: Supportive measures - Time Time Spent: 50 to 70 Minutes - Inpatient Certification Medical Necessity: Need Close Monitoring Due to Risk of Patient Decompensation
[2019-01-17] MEDS: NORMAL SALINE 1000 ML 1,000 ML IV PRN ×2 (07:47→14:06)
[2019-01-17] MEDS: POTASSI CL 20 MEQ/50 ML RIDER 20 MEQ/50 ML RTUPB IV SCH ×2 (07:47→09:30)
[2019-01-17] MEDS: LORAZEPAM INJ 2 MG/1 ML VIAL IV PRN ×4 (09:30→22:43)
[2019-01-17] MEDS: FAMOTIDINE INJ/PF 20 MG/2 ML SDV IV SCH ×2 (10:18→21:38)
[2019-01-17 10:32] LABS: APPEARANCE,URINE SLIGHTLY-CLOUDY; BILIRUBIN,URINE NEGATIVE (NEGATIVE); GLUCOSE, URINE >=500 mg/dL (NEGATIVE); KETONES,URINE 80 mg/dL (NEGATIVE); LEUKOCYTE ESTERASE,URINE TRACE (NEGATIVE); NITRITE,URINE NEGATIVE (NEGATIVE); PROTEIN,URINE 30 mg/dL (NEGATIVE); URINE SPECIFIC GRAVITY 1.015
[2019-01-17 10:33] LABS: COLOR,URINE YELLOW
[2019-01-17 10:45] LABS: URINE AMPHETAMINES SCREEN NEGATIVE; URINE BARBITURATES SCREEN NEGATIVE; URINE BENZODIAZEPINES SCREEN NEGATIVE; URINE COCAINE SCREEN NEGATIVE; URINE MARIJUANA (THC) SCREEN UNCONFIRMED POSITIVE; URINE METHADONE SCREEN NEGATIVE; URINE PHENCYCLIDINE SCREEN NEGATIVE
[2019-01-17] MEDS: THIAMINE HCL 100 MG, FOLIC ACID 1 MG in NORMAL SALINE 250 ML IV SCH (12:22)
[2019-01-17] MEDS: HEPARIN SOD (PORCINE) 5,000 UNIT/ML 1 ML SYRINGE SUBCUT SCH ×2 (14:12→21:35)
[2019-01-17] MEDS ORDERED: NORMAL SALINE 1000 ML 1,000 ML IV PRN (15:00)
--- NOTE | 2019-01-17 15:02 | PDOC CONSULTATION ---
Consultation Consult Date: 01/17/19 Attending physician:: WANDA HANSON Consult reason:: Etoh Hepatitis, possible alcoholic pancreatitis History of Present Illness Admission Date/PCP: 01/17/19 07:03 History of Present Illness: MONIQUE ROJAS is a 33 year old female patient was admitted to the Hospitalist service has had a history of alcohol use has been diagnosed with pancreatitis, and has abnormal LFT's as well patient may have DT's as well ultrasound is negative H/H is stable, no active bleeding continue conservative therapy no active GI intervention is needed no ductal dilation on ultrasound, appears to have both alcoholic and pancreatitis due to alcohol itself would check on hepatitis profile as well Past Medical History Cardiac Medical History: Reports: None Pulmonary Medical History: Reports: Asthma EENT Medical History: Reports: None Neurological Medical History: Reports: Seizures Endocrine Medical History: Reports: None Renal/ Medical History: Reports: None Malignancy Medical History: Reports: None GI Medical History: Reports: Cirrhosis, Gastroesophageal Reflux Disease, Hepatitis Musculoskeltal Medical History: Reports: Arthritis Psychiatric Medical History: Reports: Alcohol Dependency, Depression, Substance Abuse, Tobacco Dependency Hematology: Reports: None Infectious Medical History: Reports: None Past Surgical History Past Surgical History: Reports: Section - X 3, Hysterectomy Social History Smoking Status: Current Every Day Smoker Frequency of Alcohol Use: Heavy Drugs: Marijuana Hx Prescription Drug Abuse: No - Advance Directive Resuscitation Status: Full Code Family History Family History: COPD Parental Family History Reviewed: Yes Children Family History Reviewed: Unknown Sibling(s) Family History Reviewed.: Unknown Medication/Allergy Home Medications: No Home Medications 01/17/19 Allergies/Adverse Reactions: aripiprazole [From Abilify] Allergy (Verified 01/17/19 09:39) egg Allergy (Verified 01/17/19 09:39) pregabalin [From Lyrica] Allergy (Verified 01/17/19 09:39) tramadol Allergy (Verified 01/17/19 09:39) Review of Systems Constitutional: ABSENT: fever(s), headache(s), night sweats Ears: ABSENT: hearing changes Nose, Mouth, and Throat: ABSENT: mouth pain, sore throat Cardiovascular: ABSENT: edema, orthropnea, palpitations Respiratory: ABSENT: dyspnea, hemoptysis Gastrointestinal: ABSENT: diarrhea, hematemesis Genitourinary: ABSENT: dysuria, hematuria Musculoskeletal: ABSENT: deformity, joint swelling Neurological: ABSENT: syncope, tingling, tremor(s), vertigo Endocrine: ABSENT: polydipsia, polyphagia, polyuria Hematologic/Lymphatic: ABSENT: easy bruising Physical Exam Vital Signs: Temp Pulse Resp BP Pulse Ox 99.0 F 78 18 117/80 100 01/17/19 14:04 01/17/19 14:04 01/17/19 14:04 01/17/19 14:04 01/17/19 14:04 Intake & Output 01/16/19 01/17/19 01/18/19 06:59 06:59 06:59 Intake Total 1000 1344.2 Balance 1000 1344.2 Weight 48 kg General appearance: PRESENT: mild distress, well-developed, well-nourished Head exam: PRESENT: atraumatic, normocephalic Eye exam: PRESENT: EOMI, PERRLA. ABSENT: nystagmus, periorbital swelling, scleral icterus Mouth exam: PRESENT: moist, neck supple Throat exam: ABSENT: tonsillar exudate, tonsillogmegaly Neck exam: ABSENT: meningismus, tenderness, thyromegaly Respiratory exam: PRESENT: symmetrical, tachypnea. ABSENT: unlabored, wheezes Cardiovascular exam: PRESENT: RRR, +S2 GI/Abdominal exam: PRESENT: soft. ABSENT: rebound, rigid, tenderness Extremities exam: ABSENT: joint swelling Musculoskeletal exam: PRESENT: full ROM Neurological exam: PRESENT: altered, CN II-XII grossly intact Focused psych exam: ABSENT: restlessness Skin exam: PRESENT: normal color. ABSENT: mottled, pallor, urticaria, vesicles Results Laboratory Results: 01/17/19 05:07 01/17/19 04:20 01/17/19 01/17/19 01/17/19 04:20 04:20 04:20 WBC Cancelled RBC Cancelled Hgb Cancelled Hct Cancelled MCV Cancelled MCH Cancelled MCHC Cancelled RDW Cancelled Plt Count Cancelled Seg Neutrophils % Cancelled Lymphocytes % Cancelled Monocytes % Cancelled Eosinophils % Cancelled Basophils % Cancelled Absolute Neutrophils Cancelled Absolute Lymphocytes Cancelled Absolute Monocytes Cancelled Absolute Eosinophils Cancelled Absolute Basophils Cancelled Sodium 134.7 L Potassium 3.1 L Chloride 88 L Carbon Dioxide 19 L Anion Gap 28 H BUN 11 Creatinine 0.66 Est GFR ( Amer) > 60 Est GFR (Non-Af Amer) > 60 Glucose 144 H Calcium 8.7 Magnesium Total Bilirubin 4.4 H AST 1066 H ALT 147 H Alkaline Phosphatase 202 H Total Protein 7.1 Albumin 4.8 Lipase Serum HCG, Qual NEGATIVE Urine Color Urine Appearance Urine pH Ur Specific [place] Urine Protein Urine Glucose (UA) Urine Ketones Urine Blood Urine Nitrite Ur Leukocyte Esterase Urine WBC (Auto) Urine RBC (Auto) 01/17/19 01/17/19 01/17/19 04:20 05:07 09:45 WBC 2.5 L RBC 3.01 L Hgb 12.1 Hct 33.9 L MCV 113 H MCH 40.2 H MCHC 35.8 RDW 17.6 H Plt Count 70 L Seg Neutrophils % Not Reportable Lymphocytes % Not Reportable Monocytes % Not Reportable Eosinophils % Not Reportable Basophils % Not Reportable Absolute Neutrophils Not Reportable Absolute Lymphocytes Not Reportable Absolute Monocytes Not Reportable Absolute Eosinophils Not Reportable Absolute Basophils Not Reportable Sodium Potassium Chloride Carbon Dioxide Anion Gap BUN Creatinine Est GFR ( Amer) Est GFR (Non-Af Amer) Glucose Calcium Magnesium 2.2 Total Bilirubin AST ALT Alkaline Phosphatase Total Protein Albumin Lipase 3417.0 H Serum HCG, Qual Urine Color YELLOW Urine Appearance SLIGHTLY-CLOUDY Urine pH 6.0 Ur Specific [place] 1.015 Urine Protein 30 H Urine Glucose (UA) >=500 H Urine Ketones 80 H Urine Blood SMALL H Urine Nitrite NEGATIVE Ur Leukocyte Esterase TRACE H Urine WBC (Auto) 34 Urine RBC (Auto) 2 Impressions: Abdomen Ultrasound 01/17/19 05:14 IMPRESSION: No acute sonographic abnormality. Assessment & Plan - Diagnosis (1) Alcoholic hepatitis Qualifiers: Ascites presence: unspecified Qualified Code(s): K70.10 - Alcoholic hepatitis without ascites Is this a current diagnosis for this admission?: Yes Plan: continue conservative therapy recommend substance abuse consult (2) Alcoholic intoxication Qualifiers: Complication of substance-induced condition: with unspecified complication Qualified Code(s): F10.929 - Alcohol use, unspecified with intoxication, unspecified Is this a current diagnosis for this admission?: Yes Plan: treat for impending DT's (3) Pancreatitis Qualifiers: Chronicity: acute Pancreatitis type: alcohol induced Acute pancreatitis complication: unspecified Qualified Code(s): K85.20 - Alcohol induced acute pancreatitis without necrosis or infection Is this a current diagnosis for this admission?: Yes Plan: acute pancreatitis, no signs of calcification but may need CT scan (4) Alcohol withdrawal Qualifiers: Complication of substance-induced condition: uncomplicated Qualified Code(s): F10.230 - Alcohol dependence with withdrawal, uncomplicated Is this a current diagnosis for this admission?: Yes Plan: continue conservative therapy - Time Time Spent: 50 to 70 Minutes
[2019-01-17 21:02] LABS: BLOOD UREA NITROGEN 4 mg/dL (7-20); CALCIUM 7.9 mg/dL (8.4-10.2); GLUCOSE 102 mg/dL (75-110)
[2019-01-17 21:18] LABS: CARBON DIOXIDE 17 mmol/L (22-30); CHLORIDE 94 mmol/L (98-107); SODIUM 133.3 mmol/L (137-145)
[2019-01-17 21:37] LABS: LIPASE 2783.5 U/L (23-300)
[2019-01-17 21:38] LABS: ANION GAP 22 (5-19)
[2019-01-17] MEDS: POTASSI CL 20 MEQ/NS 1L 1000 ML IV PRN (22:42)
[2019-01-18] MEDS ORDERED: DEXTROSE 50%-WATER SYRINGE 25 GM/50 ML DOSE IV PRN (00:30)
[2019-01-18] MEDS ORDERED: DEXTROSE 40% GEL 15 GM TUBE PO PRN (00:30)
[2019-01-18] MEDS ORDERED: DEXTROSE 50%-WATER SYRINGE 12.5 GM/25 ML DOSE IV PRN (00:30)
[2019-01-18] MEDS ORDERED: GLUCAGON,HUMAN RECOMB 1 MG INJ IM PRN (00:30)
[2019-01-18] MEDS ORDERED: DEXTROSE 40% GEL 15 GM TUBE X 2 PO PRN (00:30)
[2019-01-18] MEDS ORDERED: MORPHINE SULFATE 10 MG/ML INJ IV PRN (02:38)
[2019-01-18] MEDS: MORPHINE SULFATE 10 MG/ML INJ IV PRN ×3 (02:57→12:21)
[2019-01-18] MEDS: LORAZEPAM INJ 2 MG/1 ML VIAL IV PRN ×7 (04:43→23:25)
[2019-01-18] MEDS: HEPARIN SOD (PORCINE) 5,000 UNIT/ML 1 ML SYRINGE SUBCUT SCH ×3 (05:11→21:22)
[2019-01-18] MEDS: POTASSI CL 20 MEQ/NS 1L 1000 ML IV PRN ×3 (05:33→19:54)
[2019-01-18 05:43] LABS: ABSOLUTE LYMPHOCYTES (AUTO) 0.7 10^3/uL (0.5-4.7); ABSOLUTE MONOCYTES (AUTO) 0.2 10^3/uL (0.1-1.4); ABSOLUTE NEUT (AUTO) 2.4 10^3/uL (1.7-8.2); EOSINOPHILS % (AUTO) 0.5 % (0-6); HEMATOCRIT 32.3 % (36.0-47.0); HEMOGLOBIN 11.2 g/dL (12.0-15.5); LYMPHOCYTES % (AUTO) 21.3 % (13-45); MEAN CORPUSCULAR HEMOGLOBIN 39.8 pg (27.0-33.4); MEAN CORPUSCULAR HGB CONC 34.7 g/dL (32.0-36.0); MEAN CORPUSCULAR VOLUME 115 fl (80-97); MONOCYTES % (AUTO) 5.5 % (3-13); RED BLOOD COUNT 2.81 10^6/uL (3.72-5.28); RED CELL DISTRIBUTION WIDTH 17.7 % (11.5-14.0); SEGMENTED NEUTROPHILS % (AUTO) 71.7 % (42-78); TOTAL CELLS COUNTED % (AUTO) 100 %; WHITE BLOOD COUNT 3.4 10^3/uL (4.0-10.5)
[2019-01-18 05:47] LABS: PLATELET COUNT 61 10^3/uL (150-450)
[2019-01-18 06:03] LABS: ANISOCYTOSIS 1+; PLATELET COMMENT DECREASED; POIKILOCYTOSIS 1+; POLYCHROMASIA 1+; TARGET CELLS 1+
[2019-01-18 06:08] LABS: ALANINE AMINOTRANSFERASE 125 U/L (9-52); ALBUMIN 4.1 g/dL (3.5-5.0); ALKALINE PHOSPHATASE 192 U/L (38-126); BILIRUBIN,DIRECT 4.3 mg/dL (0.0-0.4); BILIRUBIN,TOTAL 5.5 mg/dL (0.2-1.3); BLOOD UREA NITROGEN 3 mg/dL (7-20); CALCIUM 8.6 mg/dL (8.4-10.2); GLUCOSE 94 mg/dL (75-110); POTASSIUM 3.1 mmol/L (3.6-5.0)
[2019-01-18 06:15] LABS: CARBON DIOXIDE 21 mmol/L (22-30); CHLORIDE 96 mmol/L (98-107); SODIUM 137.3 mmol/L (137-145)
[2019-01-18 06:40] LABS: ANION GAP 20 (5-19); ASPARTATE AMINO TRANSFERASE 809 U/L (14-36)
--- NOTE | 2019-01-18 09:53 | Progress Note ---
Provider Note Provider Note: Later earlier this morning by Dr. Ruano. Case management is actively discussing rehab placement in a long-term rehab program with the patient. She is stable. Still exhibits signs of intoxication. No evidence of delirium tremens yet but I fully anticipate withdrawal soon.
[2019-01-18] MEDS: FAMOTIDINE INJ/PF 20 MG/2 ML SDV IV SCH ×2 (10:31→21:20)
[2019-01-18] MEDS: THIAMINE HCL 100 MG, FOLIC ACID 1 MG in NORMAL SALINE 250 ML IV SCH (10:54)
--- NOTE | 2019-01-18 12:58 | EKG REPORT ---
SEVERITY:- ABNORMAL ECG - SINUS RHYTHM NONSPECIFIC T ABNORMALITIES, ANT-LAT LEADS PROLONGED QT INTERVAL : Confirmed by: Adrian Garza MD 18-Jan-2019 12:58:24
--- NOTE | 2019-01-18 13:11 | PDOC PROGRESS REPORT ---
Subjective Progress Note for:: 01/18/19 Subjective:: No adverse events overnight. She was fast asleep whenever came in the room but she woke up. She still has some abdominal pain but she is able to get some rest. No specific signs of withdrawal at this point, her last drink was night before last. Urine output is improving. She is asking if she can have something besides ice chips. Reason For Visit: ETOH PANCREATITIS,HEPATITIS AND WITHDRAW W SEIZURE Physical Exam Vital Signs: Temp Pulse Resp BP Pulse Ox 98.8 F 106 H 12 117/81 96 01/18/19 10:39 01/18/19 11:16 01/18/19 11:16 01/18/19 10:39 01/18/19 11:16 Intake & Output 01/17/19 01/18/19 01/19/19 06:59 06:59 06:59 Intake Total 1000 4172.2 1251.2 Balance 1000 4172.2 1251.2 Weight 48 kg 48 kg General appearance: PRESENT: no acute distress, cooperative, disheveled, thin Eye exam: PRESENT: scleral icterus Respiratory exam: PRESENT: clear to auscultation sarai, symmetrical, unlabored. ABSENT: accessory muscle use, crackles, prolonged expiratory phas, rhonchi, tachypnea, wheezes Cardiovascular exam: PRESENT: RRR, +S1, +S2 Pulses: PRESENT: normal carotid pulses Vascular exam: PRESENT: normal capillary refill GI/Abdominal exam: PRESENT: normal bowel sounds, soft. ABSENT: ascites, distended, guarding, rebound, tenderness Extremities exam: ABSENT: clubbing, pedal edema Musculoskeletal exam: PRESENT: normal inspection. ABSENT: deformity Neurological exam: PRESENT: awake - Was asleep when I first came in the room but was able to wake up and talk to me after I called her name several times, oriented to person, oriented to place, oriented to situation Psychiatric exam: PRESENT: flat affect Skin exam: PRESENT: dry, jaundice, warm Results Laboratory Results: 01/18/19 05:03 01/18/19 05:03 01/17/19 01/18/19 01/18/19 20:13 05:03 05:03 WBC 3.4 L RBC 2.81 L Hgb 11.2 L Hct 32.3 L MCV 115 H MCH 39.8 H MCHC 34.7 RDW 17.7 H Plt Count 61 L Seg Neutrophils % 71.7 Lymphocytes % 21.3 Monocytes % 5.5 Eosinophils % 0.5 Basophils % 1.0 Absolute Neutrophils 2.4 Absolute Lymphocytes 0.7 Absolute Monocytes 0.2 Absolute Eosinophils 0.0 Absolute Basophils 0.0 Sodium 133.3 L 137.3 Potassium 3.0 L* 3.1 L Chloride 94 L 96 L Carbon Dioxide 17 L 21 L Anion Gap 22 H 20 H BUN 4 L 3 L Creatinine 0.45 L 0.52 Est GFR ( Amer) > 60 > 60 Est GFR (Non-Af Amer) > 60 > 60 Glucose 102 94 Calcium 7.9 L 8.6 Magnesium 1.9 Total Bilirubin 5.5 H AST 809 H ALT 125 H Alkaline Phosphatase 192 H Total Protein 6.0 L Albumin 4.1 Lipase 2783.5 H Impressions: Abdomen Ultrasound 01/17/19 05:14 IMPRESSION: No acute sonographic abnormality. Assessment & Plan - Diagnosis (1) Pancreatitis Qualifiers: Chronicity: acute Pancreatitis type: alcohol induced Acute pancreatitis complication: unspecified Qualified Code(s): K85.20 - Alcohol induced acute pancreatitis without necrosis or infection Is this a current diagnosis for this admission?: Yes Plan: Continue IV fluids and got rest, along with anti-emetics. Repeating her lipase today. She was asking for something to drink besides ice chips, but I would like to make sure that her pancreatitis is resolving before we attempt oral fluid challenge. (2) Alcoholic hepatitis Qualifiers: Ascites presence: unspecified Qualified Code(s): K70.10 - Alcoholic hepatitis without ascites Is this a current diagnosis for this admission?: Yes Plan: She does have some transaminasemia which is improving. Were watching her for signs of withdrawal. (3) Hypokalemia Is this a current diagnosis for this admission?: Yes Plan: She is getting some potassium in her IV fluids, but I am going to give her a supplemental dose again today. Her magnesium is normal (4) Transaminasemia Is this a current diagnosis for this admission?: Yes Plan: Improving with IV fluids - Time Time Spent with patient: 25-34 minutes
[2019-01-18] MEDS ORDERED: POTASSI CL 20 MEQ/50 ML RIDER 20 MEQ/50 ML RTUPB IV ONE (16:00)
[2019-01-19] MEDS: MORPHINE SULFATE 10 MG/ML INJ IV PRN ×5 (01:19→18:58)
[2019-01-19] MEDS: LORAZEPAM INJ 2 MG/1 ML VIAL IV PRN ×5 (01:38→20:43)
[2019-01-19] MEDS: POTASSI CL 20 MEQ/NS 1L 1000 ML IV PRN ×3 (02:35→16:18)
[2019-01-19] MEDS: HEPARIN SOD (PORCINE) 5,000 UNIT/ML 1 ML SYRINGE SUBCUT SCH ×3 (06:33→21:12)
[2019-01-19] MEDS: THIAMINE HCL 100 MG TABLET PO SCH (09:28)
[2019-01-19] MEDS: FOLIC ACID 1 MG TABLET PO SCH (09:28)
[2019-01-19] MEDS: FAMOTIDINE INJ/PF 20 MG/2 ML SDV IV SCH ×2 (09:30→21:04)
[2019-01-19] MEDS ORDERED: POTASSIUM CHLORIDE 20 MEQ/15 ML UDCUP PO ONE (17:08)
--- NOTE | 2019-01-19 18:48 | PDOC PROGRESS REPORT ---
Subjective Progress Note for:: 01/19/19 Subjective:: No acute events overnight. Patient still having persistent abdominal pain but improved since yesterday. Was able able to tolerate some p.o. intake. Has not had any vomiting but is still nauseous. Pain is epigastric radiating to her back. Denies any fever, chills, chest pain, shortness of breath, diarrhea or any urinary symptoms. Reason For Visit: ETOH PANCREATITIS,HEPATITIS AND WITHDRAW W SEIZURE Physical Exam Vital Signs: Temp Pulse Resp BP Pulse Ox 98.4 F 103 H 18 125/73 100 01/19/19 15:00 01/19/19 15:00 01/19/19 15:00 01/19/19 15:00 01/19/19 15:00 Intake & Output 01/18/19 01/19/19 01/20/19 06:59 06:59 06:59 Intake Total 4172.2 3301.2 2925 Output Total 3400 1200 Balance 4172.2 -98.8 1725 Weight 48 kg 47 kg General appearance: PRESENT: no acute distress, well-developed, well-nourished Head exam: PRESENT: atraumatic, normocephalic Neck exam: ABSENT: carotid bruit, JVD, lymphadenopathy, thyromegaly Respiratory exam: PRESENT: clear to auscultation sarai. ABSENT: rales, rhonchi, wheezes Cardiovascular exam: PRESENT: RRR. ABSENT: diastolic murmur, rubs, systolic murmur GI/Abdominal exam: PRESENT: guarding, hypoactive bowel sounds, normal bowel sounds, soft, tenderness - Epigastric. ABSENT: distended, mass, organolmegaly, rebound Neurological exam: PRESENT: alert, awake, oriented to person, oriented to place, oriented to time, oriented to situation, CN II-XII grossly intact. ABSENT: motor sensory deficit Results Laboratory Results: 01/18/19 05:03 01/18/19 05:03 Impressions: Abdomen Ultrasound 01/17/19 05:14 IMPRESSION: No acute sonographic abnormality. Assessment & Plan - Diagnosis (1) Pancreatitis Qualifiers: Chronicity: acute Pancreatitis type: alcohol induced Acute pancreatitis complication: unspecified Qualified Code(s): K85.20 - Alcohol induced acute pancreatitis without necrosis or infection Is this a current diagnosis for this admission?: Yes Plan: Volume resuscitation guided by volume status. Opioid analgesics for pain. Antiemetics. Advance diet as tolerated. (2) Alcoholic hepatitis Qualifiers: Ascites presence: unspecified Qualified Code(s): K70.10 - Alcoholic hepatitis without ascites Is this a current diagnosis for this admission?: Yes Plan: Improving. Abdominal ultrasound fatty infiltration. Pending hepatitis panel. (3) Alcoholic intoxication Qualifiers: Complication of substance-induced condition: with unspecified complication Qualified Code(s): F10.929 - Alcohol use, unspecified with intoxication, uns pecified Is this a current diagnosis for this admission?: Yes Plan: Monitor for DT.
[2019-01-19] MEDS: NORMAL SALINE 1000 ML 1,000 ML IV PRN (19:00)
[2019-01-20] MEDS: LORAZEPAM INJ 2 MG/1 ML VIAL IV PRN ×4 (01:50→20:55)
[2019-01-20] MEDS: MORPHINE SULFATE 10 MG/ML INJ IV PRN ×3 (01:50→20:55)
[2019-01-20] MEDS: NORMAL SALINE 1000 ML 1,000 ML IV PRN (01:52)
[2019-01-20] MEDS: MAG HYDROX/AL HYDROX/SIMETH SUSP 30 ML UDCUP PO PRN (01:55)
[2019-01-20] MEDS: HEPARIN SOD (PORCINE) 5,000 UNIT/ML 1 ML SYRINGE SUBCUT SCH ×3 (05:36→21:00)
[2019-01-20 06:19] LABS: HEMOGLOBIN 10.9 g/dL (12.0-15.5); RED CELL DISTRIBUTION WIDTH 17.3 % (11.5-14.0)
[2019-01-20 06:47] LABS: ALANINE AMINOTRANSFERASE 89 U/L (9-52); ALBUMIN 3.6 g/dL (3.5-5.0); ALKALINE PHOSPHATASE 182 U/L (38-126); ANION GAP 10 (5-19); ASPARTATE AMINO TRANSFERASE 383 U/L (14-36); BILIRUBIN,DIRECT 5.2 mg/dL (0.0-0.4); BILIRUBIN,TOTAL 6.4 mg/dL (0.2-1.3); CALCIUM 8.2 mg/dL (8.4-10.2); CARBON DIOXIDE 35 mmol/L (22-30); CHLORIDE 91 mmol/L (98-107); GLUCOSE 116 mg/dL (75-110); SODIUM 135.6 mmol/L (137-145); TOTAL PROTEIN 5.6 g/dL (6.3-8.2)
[2019-01-20 07:00] LABS: BLOOD UREA NITROGEN < 2 mg/dL (7-20)
[2019-01-20 07:02] LABS: ABSOLUTE LYMPHOCYTES# (MANUAL) 0.9 10^3/uL (0.5-4.7); ABSOLUTE MONOCYTES # (MANUAL) 0.1 10^3/uL (0.1-1.4); ABSOLUTE NEUTROPHILS# (MANUAL) 1.9 10^3/uL (1.7-8.2); BAND NEUTROPHILS % (MANUAL) 3 % (3-5); BASOPHILS % (MANUAL) 0 % (0-2); EOSINOPHILS % (MANUAL) 3 % (0-6); LYMPHOCYTES % (MANUAL) 30 % (13-45); MONOCYTES % (MANUAL) 2 % (3-13); SEGMENTED NEUTROPHILS % (MAN) 62 % (42-78); TOTAL CELLS COUNTED 100
[2019-01-20 07:03] LABS: POTASSIUM 2.7 mmol/L (3.6-5.0)
[2019-01-20 07:05] LABS: ANISOCYTOSIS 1+; PLATELET COMMENT DECREASED; POIKILOCYTOSIS 1+; POLYCHROMASIA SLIGHT; STOMATOCYTES 1+; TARGET CELLS SLIGHT
[2019-01-20 07:07] LABS: HEMATOCRIT 30.7 % (36.0-47.0); MEAN CORPUSCULAR HEMOGLOBIN 39.8 pg (27.0-33.4); MEAN CORPUSCULAR HGB CONC 35.5 g/dL (32.0-36.0); PLATELET COUNT 76 10^3/uL (150-450); RED BLOOD COUNT 2.74 10^6/uL (3.72-5.28); WHITE BLOOD COUNT 3.1 10^3/uL (4.0-10.5)
[2019-01-20 07:10] LABS: MEAN CORPUSCULAR VOLUME 112 fl (80-97)
[2019-01-20] MEDS ORDERED: MAGNESIUM SULFATE/D5W 1 GM/100 ML RTUPB IV ONE (07:45)
[2019-01-20] MEDS: POTASSI CL 20 MEQ/NS 1L 1000 ML IV PRN ×2 (07:57→18:16)
[2019-01-20] MEDS ORDERED: ONDANSETRON HCL INJ/PF 4 MG/2 ML SDV ONE (10:33)
[2019-01-20] MEDS: FAMOTIDINE INJ/PF 20 MG/2 ML SDV IV SCH ×2 (10:37→21:01)
[2019-01-20] MEDS: THIAMINE HCL 100 MG TABLET PO SCH (13:41)
[2019-01-20] MEDS: FOLIC ACID 1 MG TABLET PO SCH (13:41)
--- NOTE | 2019-01-20 14:59 | PDOC PROGRESS REPORT ---
Subjective Progress Note for:: 01/20/19 Subjective:: 01/19/2019. No acute events overnight. Patient still having persistent abdominal pain but improved since yesterday. Was able able to tolerate some p.o. intake. Has not had any vomiting but is still nauseous. Pain is epigastric radiating to her back. Denies any fever, chills, chest pain, shortness of breath, diarrhea or any urinary symptoms. 01/20/2019. No acute events overnight. Patient is still having persistent abdominal pain very mild improvement since yesterday. He was not able to tolerate p.o. intake. She is not vomiting however has constant nausea. Abdominal pain is epigastric radiating to the back. She is passing flatus but not has had bowel movements since admission. Denies any fever, chills, vomiting, fever, chest pain or any urinary symptoms. Reason For Visit: ETOH PANCREATITIS,HEPATITIS AND WITHDRAW W SEIZURE Physical Exam Vital Signs: Temp Pulse Resp BP Pulse Ox 98.6 F 91 16 112/77 98 01/20/19 03:34 01/20/19 07:00 01/20/19 03:34 01/20/19 03:34 01/20/19 03:34 Intake & Output 01/19/19 01/20/19 01/21/19 06:59 06:59 06:59 Intake Total 3301.2 4082 Output Total 3400 3250 Balance -98.8 832 Weight 47 kg 47.8 kg General appearance: PRESENT: no acute distress, well-developed, well-nourished Head exam: PRESENT: atraumatic, normocephalic Neck exam: ABSENT: carotid bruit, JVD, lymphadenopathy, thyromegaly Respiratory exam: PRESENT: clear to auscultation sarai. ABSENT: rales, rhonchi, wheezes Cardiovascular exam: PRESENT: RRR. ABSENT: diastolic murmur, rubs, systolic m urmur GI/Abdominal exam: PRESENT: guarding, normal bowel sounds, tenderness - Epigastric tenderness.. ABSENT: distended, mass, organolmegaly, rebound Neurological exam: PRESENT: alert, awake, oriented to person, oriented to place, oriented to time, oriented to situation, CN II-XII grossly intact. ABSENT: motor sensory deficit Results Laboratory Results: 01/20/19 05:30 01/20/19 05:30 01/20/19 01/20/19 05:30 05:30 WBC 3.1 L RBC 2.74 L Hgb 10.9 L Hct 30.7 L MCV 112 H MCH 39.8 H MCHC 35.5 RDW 17.3 H Plt Count 76 L Seg Neutrophils % Not Reportable Lymphocytes % Not Reportable Monocytes % Not Reportable Eosinophils % Not Reportable Basophils % Not Reportable Absolute Neutrophils Not Reportable Absolute Lymphocytes Not Reportable Absolute Monocytes Not Reportable Absolute Eosinophils Not Reportable Absolute Basophils Not Reportable Sodium 135.6 L Potassium 2.7 L* Chloride 91 L Carbon Dioxide 35 H Anion Gap 10 BUN < 2 L Creatinine 0.39 L Est GFR ( Amer) > 60 Est GFR (Non-Af Amer) > 60 Glucose 116 H Calcium 8.2 L Magnesium 1.2 L* Total Bilirubin 6.4 H AST 383 H ALT 89 H Alkaline Phosphatase 182 H Total Protein 5.6 L Albumin 3.6 Impressions: Abdomen Ultrasound 01/17/19 05:14 IMPRESSION: No acute sonographic abnormality. Assessment & Plan - Diagnosis (1) Pancreatitis Qualifiers: Chronicity: acute Pancreatitis type: alcohol induced Acute pancreatitis c omplication: unspecified Qualified Code(s): K85.20 - Alcohol induced acute pancreatitis without necrosis or infection Is this a current diagnosis for this admission?: Yes Plan: Volume resuscitation guided by volume status. Opioid analgesics for pain. Antiemetics. Advance diet as tolerated. (2) Alcoholic hepatitis Qualifiers: Ascites presence: unspecified Qualified Code(s): K70.10 - Alcoholic hepatitis without ascites Is this a current diagnosis for this admission?: Yes Plan: Improving. Abdominal ultrasound fatty infiltration. Pending hepatitis panel. GI consulted. Recommendation is supportive measures. (3) Alcoholic intoxication Qualifiers: Complication of substance-induced condition: with unspecified complication Qualified Code(s): F10.929 - Alcohol use, unspecified with intoxication, un specified Is this a current diagnosis for this admission?: Yes Plan: Monitor for DT. Started on folic acid and thiamine. (4) Hypokalemia Is this a current diagnosis for this admission?: Yes Plan: Continue daily replacement. BMP tomorrow. (5) Hypomagnesemia Is this a current diagnosis for this admission?: Yes Plan: Continue daily magnesium replacement. Magnesium level tomorrow.
[2019-01-20] MEDS: CLONAZEPAM 1 MG TABLET PO PRN (16:00)
[2019-01-20 17:07] LABS: ANION GAP 9 (5-19); CALCIUM 8.6 mg/dL (8.4-10.2); CARBON DIOXIDE 33 mmol/L (22-30); CHLORIDE 93 mmol/L (98-107); GLUCOSE 114 mg/dL (75-110); POTASSIUM 3.2 mmol/L (3.6-5.0); SODIUM 134.5 mmol/L (137-145)
[2019-01-20 17:11] LABS: BLOOD UREA NITROGEN < 2 mg/dL (7-20)
[2019-01-20] MEDS: ONDANSETRON HCL INJ/PF 4 MG/2 ML SDV IV PRN (18:15)
[2019-01-21] MEDS: POTASSI CL 20 MEQ/NS 1L 1000 ML IV PRN ×3 (00:57→17:54)
[2019-01-21] MEDS: LORAZEPAM INJ 2 MG/1 ML VIAL IV PRN (03:45)
[2019-01-21] MEDS: ONDANSETRON HCL INJ/PF 4 MG/2 ML SDV IV PRN (05:10)
[2019-01-21] MEDS: MORPHINE SULFATE 10 MG/ML INJ IV PRN (05:11)
[2019-01-21] MEDS: HEPARIN SOD (PORCINE) 5,000 UNIT/ML 1 ML SYRINGE SUBCUT SCH ×3 (05:16→21:47)
[2019-01-21 08:40] LABS: HEPATITIS A AB IGM Negative (Negative); HEPATITIS B CORE AB IGM Negative (Negative); HEPATITS B SURFACE ANTIGEN Negative (Negative)
[2019-01-21 08:55] LABS: ANION GAP 10 (5-19); CARBON DIOXIDE 31 mmol/L (22-30); CHLORIDE 99 mmol/L (98-107); GLUCOSE 108 mg/dL (75-110); LIPASE 815.4 U/L (23-300); POTASSIUM 3.4 mmol/L (3.6-5.0); SODIUM 139.8 mmol/L (137-145)
[2019-01-21] MEDS: CLONAZEPAM 1 MG TABLET PO PRN ×3 (09:04→21:51)
[2019-01-21 09:30] LABS: BLOOD UREA NITROGEN < 2 mg/dL (7-20)
[2019-01-21] MEDS: FOLIC ACID 1 MG TABLET PO SCH (09:55)
[2019-01-21] MEDS: MAGNESIUM OXIDE 400 MG TABLET PO SCH ×2 (09:55→17:53)
[2019-01-21] MEDS: FAMOTIDINE INJ/PF 20 MG/2 ML SDV IV SCH ×2 (09:56→21:47)
[2019-01-21] MEDS: THIAMINE HCL 100 MG TABLET PO SCH (09:56)
[2019-01-21] MEDS: OXYCODONE-ACETAMINOPHEN 5-325 MG TABLET PO PRN ×3 (09:56→17:57)
[2019-01-21] MEDS ORDERED: POTASSI CL 20 MEQ/50 ML RIDER 20 MEQ/50 ML RTUPB IV ONE (10:00)
--- NOTE | 2019-01-21 11:54 | PDOC PROGRESS REPORT ---
Subjective Progress Note for:: 01/21/19 Subjective:: 01/19/2019. No acute events overnight. Patient still having persistent abdominal pain but improved since yesterday. Was able able to tolerate some p.o. intake. Has not had any vomiting but is still nauseous. Pain is epigastric radiating to her back. Denies any fever, chills, chest pain, shortness of breath, diarrhea or any urinary symptoms. 01/20/2019. No acute events overnight. Patient is still having persistent abdominal pain very mild improvement since yesterday. He was not able to tolerate p.o. intake. She is not vomiting however has constant nausea. Abdominal pain is epigastric radiating to the back. She is passing flatus but not has had bowel movements since admission. Denies any fever, chills, vomiting, fever, chest pain or any urinary symptoms. 01/21/2019. No acute events overnight. Abdominal pain is improving compared to yesterday. She was able to tolerate clear liquid has not been able to have solid food. She is passing flatus but not had a bowel movement since admission. Denies any fever, chills, nausea, vomiting, diarrhea, or any urinary symptoms. Reason For Visit: ETOH PANCREATITIS,HEPATITIS AND WITHDRAW W SEIZURE Physical Exam Vital Signs: Temp Pulse Resp BP Pulse Ox 98.4 F 83 16 103/79 100 01/21/19 03:49 01/21/19 03:49 01/21/19 03:49 01/21/19 03:49 01/21/19 03:49 Intake & Output 01/20/19 01/21/19 01/22/19 06:59 06:59 06:59 Intake Total 4082 2100 1000 Output Total 3250 4150 Balance 832 -2050 1000 Weight 47.8 kg 48.6 kg General appearance: PRESENT: no acute distress, well-developed, well-nourished Head exam: PRESENT: atraumatic, normocephalic Respiratory exam: PRESENT: clear to auscultation sarai. ABSENT: rales, rhonchi, wheezes Cardiovascular exam: PRESENT: RRR. ABSENT: diastolic murmur, rubs, systolic murmur GI/Abdominal exam: PRESENT: normal bowel sounds, soft, tenderness. ABSENT: distended, guarding, mass, organolmegaly, rebound Neurological exam: PRESENT: alert, awake, oriented to person, oriented to place, oriented to time, oriented to situation, CN II-XII grossly intact. ABSENT: motor sensory deficit Results Laboratory Results: 01/20/19 05:30 01/21/19 08:18 01/20/19 01/21/19 16:09 08:18 Sodium 134.5 L 139.8 Potassium 3.2 L 3.4 L Chloride 93 L 99 Carbon Dioxide 33 H 31 H Anion Gap 9 10 BUN < 2 L < 2 L Creatinine 0.39 L 0.44 L Est GFR ( Amer) > 60 > 60 Est GFR (Non-Af Amer) > 60 > 60 Glucose 114 H 108 Calcium 8.6 9.0 Magnesium 2.0 Lipase 815.4 H Impressions: Abdomen Ultrasound 01/17/19 05:14 IMPRESSION: No acute sonographic abnormality. Assessment & Plan - Diagnosis (1) Pancreatitis Qualifiers: Chronicity: acute Pancreatitis type: alcohol induced Acute pancreatitis complication: unspecified Qualified Code(s): K85.20 - Alcohol induced acute pancreatitis without necrosis or infection Is this a current diagnosis for this admission?: Yes Plan: Improving. Volume resuscitation guided by volume status. Taper opiate analgesics. Continue antiemetics. Advance diet as tolerated. (2) Alcoholic hepatitis Qualifiers: Ascites presence: unspecified Qualified Code(s): K70.10 - Alcoholic hepatitis without ascites Is this a current diagnosis for this admission?: Yes Plan: Improving. Abdominal ultrasound fatty infiltration. Pending hepatitis panel. GI consulted. Recommendation is supportive measures. (3) Alcoholic intoxication Qualifiers: Complication of substance-induced condition: with unspecified complication Qualified Code(s): F10.929 - Alcohol use, unspecified with intoxication, unspecified Is this a current diagnosis for this admission?: Yes Plan: Has not had any withdrawal symptoms. Continue benzos as needed but taper dosage. Continue folic acid and thiamine. (4) Hypokalemia Is this a current diagnosis for this admission?: Yes Plan: Continue daily replacement. BMP tomorrow. (5) Hypomagnesemia Is this a current diagnosis for this admission?: Yes Plan: Continue daily magnesium replacement. Magnesium level tomorrow.
[2019-01-21 20:39] LABS: HEPATITIS C VIRUS ANTIBODY <0.1 s/co ratio (0.0-0.9)
[2019-01-22] MEDS: OXYCODONE-ACETAMINOPHEN 5-325 MG TABLET PO PRN ×2 (02:23→08:32)
[2019-01-22] MEDS: POTASSI CL 20 MEQ/NS 1L 1000 ML IV PRN (02:23)
[2019-01-22] MEDS: MAG HYDROX/AL HYDROX/SIMETH SUSP 30 ML UDCUP PO PRN (02:42)
[2019-01-22 06:12] LABS: ABSOLUTE BASOPHILS # (AUTO) 0.1 10^3/uL (0.0-0.2); ABSOLUTE EOSINOPHILS # (AUTO) 0.1 10^3/uL (0.0-0.6); ABSOLUTE LYMPHOCYTES (AUTO) 0.7 10^3/uL (0.5-4.7); ABSOLUTE MONOCYTES (AUTO) 0.4 10^3/uL (0.1-1.4); ABSOLUTE NEUT (AUTO) 1.4 10^3/uL (1.7-8.2); BASOPHILS % (AUTO) 2.2 % (0-2); EOSINOPHILS % (AUTO) 5.1 % (0-6); HEMATOCRIT 28.9 % (36.0-47.0); HEMOGLOBIN 9.9 g/dL (12.0-15.5); LYMPHOCYTES % (AUTO) 27.2 % (13-45); MEAN CORPUSCULAR HEMOGLOBIN 39.4 pg (27.0-33.4); MEAN CORPUSCULAR HGB CONC 34.3 g/dL (32.0-36.0); MEAN CORPUSCULAR VOLUME 115 fl (80-97); MONOCYTES % (AUTO) 14.2 % (3-13); PLATELET COUNT 122 10^3/uL (150-450); RED BLOOD COUNT 2.51 10^6/uL (3.72-5.28); SEGMENTED NEUTROPHILS % (AUTO) 51.3 % (42-78); TOTAL CELLS COUNTED % (AUTO) 100 %; WHITE BLOOD COUNT 2.7 10^3/uL (4.0-10.5)
[2019-01-22 06:29] LABS: ALANINE AMINOTRANSFERASE 74 U/L (9-52); ALBUMIN 3.2 g/dL (3.5-5.0); ALKALINE PHOSPHATASE 168 U/L (38-126); ANION GAP 7 (5-19); ASPARTATE AMINO TRANSFERASE 177 U/L (14-36); BILIRUBIN,DIRECT 2.4 mg/dL (0.0-0.4); BILIRUBIN,TOTAL 3.4 mg/dL (0.2-1.3); CALCIUM 8.8 mg/dL (8.4-10.2); CARBON DIOXIDE 29 mmol/L (22-30); CHLORIDE 103 mmol/L (98-107); GLUCOSE 94 mg/dL (75-110); SODIUM 139.2 mmol/L (137-145); TOTAL PROTEIN 5.2 g/dL (6.3-8.2)
[2019-01-22] MEDS: CLONAZEPAM 1 MG TABLET PO PRN (06:29)
[2019-01-22 06:33] LABS: ANISOCYTOSIS 1+; PLATELET COMMENT DECREASED; POLYCHROMASIA SLIGHT; TARGET CELLS SLIGHT
[2019-01-22 06:35] LABS: BLOOD UREA NITROGEN < 2 mg/dL (7-20); POTASSIUM 4.3 mmol/L (3.6-5.0)
[2019-01-22] MEDS: HEPARIN SOD (PORCINE) 5,000 UNIT/ML 1 ML SYRINGE SUBCUT SCH (07:30)
[2019-01-22] MEDS: ONDANSETRON HCL INJ/PF 4 MG/2 ML SDV IV PRN (08:32)
[2019-01-22 08:49] VITALS: BP 115/54
--- NOTE | 2019-01-22 12:35 | PDOC DISCHARGE SUMMARY ---
General - Admit/Disc Date/PCP Admission Date/Primary Care Provider: 01/17/19 07:03 Discharge Date: 01/22/19 - Discharge Diagnosis (1) Pancreatitis Is this a current diagnosis for this admission?: Yes (2) Alcoholic hepatitis Is this a current diagnosis for this admission?: Yes (3) Alcoholic intoxication Is this a current diagnosis for this admission?: Yes (4) Hypokalemia Is this a current diagnosis for this admission?: Yes (5) Hypomagnesemia Is this a current diagnosis for this admission?: Yes - Additional Information Resuscitation Status: Full Code Discharge Diet: As Tolerated Discharge Activity: Activity As Tolerated Prescriptions: Folic Acid [Folvite 1 mg Tablet] 1 mg PO DAILY 30 Days #30 tablet Magnesium Oxide [Mag-Ox 400 mg Tablet] 800 mg PO BID 7 Days #14 tablet Oxycodone HCl/Acetaminophen [Percocet 10-325 Mg Tablet] 1 each PO Q6 PRN 3 Days #12 tablet PRN Reason: Promethazine HCl [Phenergan 25 mg Tablet] 12.5 mg PO Q8 6 Days #18 tablet Thiamine HCl [Thiamine 100 mg Tablet] 100 mg PO DAILY 30 Days #30 tablet Home Medications: Folic Acid [Folvite 1 mg Tablet] 1 mg PO DAILY 30 Days #30 tablet 01/22/19 Magnesium Oxide [Mag-Ox 400 mg Tablet] 800 mg PO BID 7 Days #14 tablet 01/22/19 Oxycodone HCl/Acetaminophen [Percocet 10-325 Mg Tablet] 1 each PO Q6 PRN 3 Days #12 tablet 01/22/19 Promethazine HCl [Phenergan 25 mg Tablet] 12.5 mg PO Q8 6 Days #18 tablet 01/22/19 Thiamine HCl [Thiamine 100 mg Tablet] 100 mg PO DAILY 30 Days #30 tablet 01/22/19 History of Present Illness History of Present Illness: MONIQUE ROJAS is a 33 year old female with a past medical history of alcohol dependence, seizure and marijuana use. She presents with 4 days of abdominal pain but continues alcohol. She denies fever chills but admits abdominal pain nausea vomiting of gastric material. She admits to several previous episodes. On previous attempts to discontinue alcohol she has had seizure. In the emergency department waiting room she has a tonic-clonic seizure despite a alcohol level of 270. Hospital Course Hospital Course: (1) Pancreatitis Improved. She was started n.p.o. with volume resuscitation. Transition to clear liquid and advanced diet as tolerated. She also received opiates for pain control which were tapered as she got better. Received antiemetics and was dis charged on some antiemetics. Advance diet as tolerated. (2) Alcoholic hepatitis LFTs improved but not to the normal range. Hepatitis panel negative. Most likely chronic hepatitis. Ultrasound today for fatty infiltration. GI was consulted. Recommendation is supportive measures. Consult on cutting down alcohol intake. PCP follow-up. (3) Alcoholic intoxication Started on DT precautions. Not have any seizure while in the patient. Has not had any withdrawal symptoms. Continue benzos as needed but taper dosage. Continue folic acid and thiamine. (4) Hypokalemia Resolved. (5) Hypomagnesemia Resolved. Was discharged on magnesium oxide p.o. twice daily for another week. Continue daily magnesium replacement. Magnesium level tomorrow. Physical Exam Vital Signs: Temp Pulse Resp BP Pulse Ox 98.5 F 86 17 115/54 L 100 01/22/19 08:48 01/22/19 08:48 01/22/19 08:48 01/22/19 08:48 01/22/19 08:48 Intake & Output 01/21/19 01/22/19 01/23/19 06:59 06:59 06:59 Intake Total 2100 4265 995 Output Total 4150 3150 Balance -2050 1115 995 Weight 48.6 kg 54.3 kg General appearance: PRESENT: no acute distress, well-developed, well-nourished Head exam: PRESENT: atraumatic, normocephalic Neck exam: ABSENT: carotid bruit, JVD, lymphadenopathy, thyromegaly Respiratory exam: PRESENT: clear to auscultation sarai. ABSENT: rales, rhonchi, wheezes Cardiovascular exam: PRESENT: RRR. ABSENT: diastolic murmur, rubs, systolic murmur GI/Abdominal exam: PRESENT: normal bowel sounds, soft. ABSENT: distended, guarding, mass, organolmegaly, rebound, tenderness Neurological exam: PRESENT: alert, awake, oriented to person, oriented to place, oriented to time, oriented to situation, CN II-XII grossly intact. ABSENT: motor sensory deficit Results Laboratory Results: 01/22/19 05:44 01/22/19 05:44 01/22/19 01/22/19 05:44 05:44 WBC 2.7 L RBC 2.51 L Hgb 9.9 L Hct 28.9 L MCV 115 H MCH 39.4 H MCHC 34.3 RDW 17.0 H Plt Count 122 L Seg Neutrophils % 51.3 Lymphocytes % 27.2 Monocytes % 14.2 H Eosinophils % 5.1 Basophils % 2.2 H Absolute Neutrophils 1.4 L Absolute Lymphocytes 0.7 Absolute Monocytes 0.4 Absolute Eosinophils 0.1 Absolute Basophils 0.1 Sodium 139.2 Potassium 4.3 Chloride 103 Carbon Dioxide 29 Anion Gap 7 BUN < 2 L Creatinine 0.41 L Est GFR ( Amer) > 60 Est GFR (Non-Af Amer) > 60 Glucose 94 Calcium 8.8 Magnesium 2.0 Total Bilirubin 3.4 H AST 177 H ALT 74 H Alkaline Phosphatase 168 H Total Protein 5.2 L Albumin 3.2 L Impressions: Abdomen Ultrasound 01/17/19 05:14 IMPRESSION: No acute sonographic abnormality. Qualifiers - * PATIENT BEING DISCHARGED WITH ANY OF THE FOLLOWING DIAGNOSIS: No VTE patient discharged on overlapping Therapy?: Yes
== END 2019-01-22 09:23 | disposition home or self-care (01) | DRG 439 ==
LOC: ER 03:57 → EH 07:03 → 3S 13:59
PROVIDERS: ADMIT Internal Medicine; ATTEND Internal Medicine
PROC: 3E0F73Z Introduction of Anti-inflammatory into Respiratory Tract, Via Natural or Artificial Opening (ICD-10-PCS; principal; 2019-01-18)
PROC: 3E02340 Introduction of Influenza Vaccine into Muscle, Percutaneous Approach (ICD-10-PCS; 2019-01-22)
DX: K85.20 Alcohol induced acute pancreatitis without necrosis or infection (principal); F10.230 Alcohol dependence with withdrawal, uncomplicated; K70.10 Alcoholic hepatitis without ascites; F10.229 Alcohol dependence with intoxication, unspecified; Y90.8 Blood alcohol level of 240 mg/100 ml or more; E87.6 Hypokalemia; E83.42 Hypomagnesemia; K21.9 Gastro-esophageal reflux disease without esophagitis; M19.90 Unspecified osteoarthritis, unspecified site; F32.9 Major depressive disorder, single episode, unspecified; F17.210 Nicotine dependence, cigarettes, uncomplicated; F60.3 Borderline personality disorder; Z23 Encounter for immunization; Z79.899 Other long term (current) drug therapy; Z90.710 Acquired absence of both cervix and uterus; Z83.6 Family history of other diseases of the respiratory system; Z88.8 Allergy status to other drugs, medicaments and biological substances; Z88.6 Allergy status to analgesic agent; Z91.012 Allergy to eggs
CPT/HCPCS: 36415; 76705; 80048; 80053; 80074; 80307; 81001; 82962; 83690; 83735; 84703; 85025; 85610; 90686; 93005; 93010; 96361; 96365; 96375; 99291; J2060; J2270; J2405; J2930; J3360; J3411; J3475; J3480; J3490; J7030; J7050; S0028

== ENCOUNTER 2020-05-23 15:09 | Emergency (ER) | payer SELFPAY ==
[2020-05-23] MEDS ORDERED: NORMAL SALINE 1000 ML 1,000 ML IV ONE (16:09)
[2020-05-23] MEDS ORDERED: ONDANSETRON HCL INJ/PF 4 MG/2 ML SDV IV ONE (16:09)
--- NOTE | 2020-05-23 16:12 | ER Document Report ---
ED General - General Chief Complaint: Nausea Stated Complaint: NAUSEA Notes: Patient is a 34-year-old white female with a past medical history of sarcoidosis and endometriosis who presents to the emergency department with a chief complaint of nausea and headache that began or Wednesday of last week. She reports a generalized headache with an oncoming illness. She states that the nausea was associated with vomiting with any oral intake. She is not been able to keep much down over the past week. She states she is also gradually developed a cough that feels congested but is nonproductive. She admits to feeling feverish but has no known recorded fevers. She denies any recent travel or known sick contacts however admits that she works at a [employer] and comes into contact with multiple customers regularly. She denies any chest pain or abdominal pain. She denies any shortness of breath but states that taking deep respirations makes her feel worse. She states she just generally feels ill. Denies any urinary complaints. No vaginal discharge or bleeding. No diarrhea or constipation. No rashes. TRAVEL OUTSIDE OF THE [place] IN LAST 30 DAYS: No - Related Data Allergies/Adverse Reactions: aripiprazole [From Abilify] Allergy (Verified 01/17/19 09:39) pregabalin [From Lyrica] Allergy (Verified 01/17/19 09:39) tramadol Allergy (Verified 01/17/19 09:39) Past Medical History - Social History Smoking Status: Current Every Day Smoker Family History: COPD Pulmonary Medical History: Reports: Hx Asthma Neurological Medical History: Reports: Hx Seizures Renal/ Medical History: Denies: Hx Peritoneal Dialysis GI Medical History: Reports: Hx Cirrhosis, Hx Gastroesophageal Reflux Disease, Hx Hepatitis Musculoskeletal Medical History: Reports Hx Arthritis Psychiatric Medical History: Reports: Hx Depression Infectious Medical History: Reports: Hx Hepatitis Past Surgical History: Reports: Hx Section - X 3, Hx Hysterectomy Review of Systems - Review of Systems Notes: As per HPI otherwise negative Physical Exam - Vital signs Vitals: Temp Pulse Resp BP Pulse Ox 98.5 F 80 20 151/96 H 100 05/23/20 16:01 05/23/20 16:01 05/23/20 16:01 05/23/20 16:01 05/23/20 16:01 - General General appearance: Appears well, Alert In distress: None - HEENT Head: Normocephalic, Atraumatic Eyes: Normal Conjunctiva: Normal Extraocular movements intact: Yes Pupils: PERRL Ears: Normal External canal: Normal Tympanic membrane: Normal Nasal: Normal Mouth/Lips: Normal Mucous membranes: Normal Pharynx: Normal Neck: Normal, Supple. No: Lymphadenopathy - Respiratory Respiratory status: No respiratory distress Chest status: Nontender Breath sounds: Normal Chest palpation: Normal - Cardiovascular Rhythm: Regular Heart sounds: Normal auscultation - Abdominal Inspection: Normal Distension: No distension Bowel sounds: Normal Tenderness: Nontender Organomegaly: No organomegaly - Back Back: No: CVA tenderness - Extremities General upper extremity: Normal inspection, Nontender, Normal color, Normal ROM, Normal temperature General lower extremity: Normal inspection, Nontender, Normal color, Normal ROM, Normal temperature, Normal weight bearing. No: Porsche's sign - Neurological Neuro grossly intact: Yes Cognition: Normal Orientation: AAOx4 Damon Coma Scale Eye Opening: Spontaneous Damon Coma Scale Verbal: Oriented Jaylene Coma Scale Motor: Obeys Commands Jaylene Coma Scale Total: 15 Speech: Normal - Psychological Associated symptoms: Normal affect, Normal mood - Skin Skin Temperature: Warm Skin Moisture: Dry Skin Color: Normal Course - Re-evaluation Re-evalutation: 05/23/20 19:37 Status post fluids and Rocephin administration, patient walking around the department urinating on her own. She appears well. She is nontoxic in appearance. Her work-up is otherwise unremarkable for any acute or emergent process. She will continue to be treated for UTI. Encouraged her to push clear fluids and rest. Counseled her regarding the importance of outpatient follow-up and advised that she return here or any ER immediately with any new, persistent or worsening symptoms. She verbalized understood and agreed. - Vital Signs Vital signs: Temp Pulse Resp BP Pulse Ox 98.9 F 76 18 118/81 100 05/23/20 18:59 05/23/20 18:59 05/23/20 18:59 05/23/20 18:59 05/23/20 18:59 - Laboratory Result Diagrams: 05/23/20 16:37 05/23/20 16:37 Laboratory results interpreted by me: 05/23/20 05/23/20 16:37 16:37 Albumin 5.3 H Urine Protein 30 H Urine Ketones 20 H Urine Urobilinogen 2.0 H Leukocyte Esterase Rfl MODERATE H Discharge - Discharge Clinical Impression: UTI (urinary tract infection) Qualifiers: Urinary tract infection type: site unspecified Hematuria presence: without hematuria Qualified Code(s): N39.0 - Urinary tract infection, site not specified Condition: Stable Disposition: HOME, SELF-CARE Instructions: Urinary Tract Infection ([facility]) Additional Instructions: Follow-up with your regular doctor in 2 to 3 days for reevaluation. Return here or any ER immediately with any new, persistent or worsening symptoms. Prescriptions: Cephalexin Monohydrate [Keflex 500 mg Capsule] 500 mg PO Q6H 10 Days #40 capsule Forms: Return to Work
[2020-05-23 16:51] LABS: ABSOLUTE LYMPHOCYTES (AUTO) 1.4 10^3/uL (0.5-4.7); ABSOLUTE MONOCYTES (AUTO) 0.7 10^3/uL (0.1-1.4); ABSOLUTE NEUT (AUTO) 4.9 10^3/uL (1.7-8.2); BASOPHILS % (AUTO) 0.7 % (0-2); EOSINOPHILS % (AUTO) 0.5 % (0-6); HEMOGLOBIN 15.4 g/dL (12.0-15.5); LYMPHOCYTES % (AUTO) 19.8 % (13-45); MEAN CORPUSCULAR HEMOGLOBIN 32.3 pg (27.0-33.4); MEAN CORPUSCULAR HGB CONC 34.3 g/dL (32.0-36.0); MEAN CORPUSCULAR VOLUME 94 fl (80-97); MONOCYTES % (AUTO) 9.5 % (3-13); PLATELET COUNT 316 10^3/uL (150-450); RED BLOOD COUNT 4.78 10^6/uL (3.72-5.28); RED CELL DISTRIBUTION WIDTH 12.2 % (11.5-14.0); SEGMENTED NEUTROPHILS % (AUTO) 69.5 % (42-78); TOTAL CELLS COUNTED % (AUTO) 100 %
--- NOTE | 2020-05-23 16:51 | RADIOLOGY REPORT (SQ) ---
EXAM DESCRIPTION: CHEST SINGLE VIEW IMAGES COMPLETED DATE/TIME: 05/23/2020 4:25 pm REASON FOR STUDY: cough COMPARISON: None. EXAM PARAMETERS: NUMBER OF VIEWS: One view. TECHNIQUE: Single frontal radiographic view of the chest acquired. RADIATION DOSE: NA LIMITATIONS: None. FINDINGS: LUNGS AND PLEURA: No opacities, masses or pneumothorax. No pleural effusion. MEDIASTINUM AND HILAR STRUCTURES: No masses. Contour normal. HEART AND VASCULAR STRUCTURES: Heart normal in size. Normal vasculature. BONES: No acute findings. HARDWARE: None in the chest. OTHER: No other significant finding. IMPRESSION: NO ACUTE RADIOGRAPHIC FINDING IN THE CHEST. TECHNICAL DOCUMENTATION: JOB ID: [id number] 2010 [employer]- All Rights Reserved Reading location - IP/workstation name: [email or web address]
[2020-05-23 16:59] LABS: AMORPHOUS SEDIMENT,URINE TRACE /HPF; APPEARANCE,URINE CLOUDY; BILIRUBIN,URINE NEGATIVE (NEGATIVE); COLOR,URINE YELLOW; GLUCOSE, URINE NEGATIVE (NEGATIVE); KETONES,URINE 20 mg/dL (NEGATIVE); PROTEIN,URINE 30 mg/dL (NEGATIVE); URINE SPECIFIC GRAVITY 1.017
[2020-05-23 17:02] LABS: A TYPE INFLUENZA AG NEGATIVE (NEGATIVE); B INFLUENZA AG NEGATIVE (NEGATIVE)
[2020-05-23 17:08] LABS: ALBUMIN 5.3 g/dL (3.5-5.0); ALKALINE PHOSPHATASE 70 U/L (38-126); ANION GAP 9 (5-19); ASPARTATE AMINO TRANSFERASE 20 U/L (14-36); BILIRUBIN,TOTAL 0.7 mg/dL (0.2-1.3); BLOOD UREA NITROGEN 13 mg/dL (7-20); CALCIUM 9.6 mg/dL (8.4-10.2); CARBON DIOXIDE 29 mmol/L (22-30); CHLORIDE 99 mmol/L (98-107); GLUCOSE 91 mg/dL (75-110); POTASSIUM 3.8 mmol/L (3.6-5.0); TOTAL PROTEIN 8.2 g/dL (6.3-8.2)
[2020-05-23] MEDS ORDERED: CEFTRIAXONE 1 GM/D5W RTU 1 GM/50 ML RTUPB IV ONE (18:22)
[2020-05-23 19:00] VITALS: BP 118/81
== END 2020-05-23 19:47 | disposition home or self-care (01) ==
LOC: ER 15:09
DX: N39.0 Urinary tract infection, site not specified (principal); R11.2 Nausea with vomiting, unspecified; R51 Headache; R05 Cough; J45.909 Unspecified asthma, uncomplicated; F17.200 Nicotine dependence, unspecified, uncomplicated; Z88.8 Allergy status to other drugs, medicaments and biological substances; Z88.6 Allergy status to analgesic agent
CPT/HCPCS: 99284; 96361; 96375; 96365; 36415; 83690; 84703; 85025; 80053; 81001; 87804; 71045; J2405; J7030; J0696

== ENCOUNTER 2020-09-06 09:26 | Emergency (ER) | payer SELFPAY ==
[2020-09-06] MEDS ORDERED: ONDANSETRON 4 MG TAB.RAPDIS PO ONE (10:09)
[2020-09-06] MEDS ORDERED: NORMAL SALINE 1000 ML 1,000 ML IV ONE (10:10)
--- NOTE | 2020-09-06 10:11 | ER Document Report ---
ED Medical Screen (RME) - General Chief Complaint: Nausea/Vomiting/Diarrhea Stated Complaint: nausea, diarrhea, loss taste/smell Time Seen by Provider: 09/06/20 10:05 Information source: Patient Notes: Patient presents complaining of nausea vomiting diarrhea with altered taste and chills. Patient states she was recently treated for UTI and just finished the antibiotics yesterday. Patient complains of left flank and left side pain. I have greeted and performed a rapid initial assessment of this patient. A comprehensive ED assessment and evaluation of the patient, analysis of test results and completion of the medical decision making process will be conducted by additional ED providers. TRAVEL OUTSIDE OF THE [place] IN LAST 30 DAYS: No - Related Data Allergies/Adverse Reactions: amitriptyline [From Elavil] Allergy (Verified 09/06/20 10:05) aripiprazole [From Abilify] Allergy (Verified 09/06/20 10:05) mirtazapine [From Remeron] Allergy (Verified 09/06/20 10:05) pregabalin [From Lyrica] Allergy (Verified 09/06/20 10:05) tramadol Allergy (Verified 09/06/20 10:05) Past Medical History - Social History Chew tobacco use (# tins/day): No Frequency of alcohol use: None Pulmonary Medical History: Reports: Hx Asthma Neurological Medical History: Reports: Hx Seizures Renal/ Medical History: Denies: Hx Peritoneal Dialysis GI Medical History: Reports: Hx Cirrhosis, Hx Gastroesophageal Reflux Disease, Hx Hepatitis Musculoskeltal Medical History: Reports Hx Arthritis Psychiatric Medical History: Reports: Hx Depression Infectious Medical History: Reports: Hx Hepatitis Past Surgical History: Reports: Hx Section - X 3, Hx Hysterectomy Physical Exam - Vital signs Vitals: Temp Pulse Resp BP Pulse Ox 98.6 F 121 H 18 129/85 H 97 09/06/20 09:33 09/06/20 09:33 09/06/20 09:33 09/06/20 09:33 09/06/20 09:33 - Back Back: CVA tenderness - Left Course - Vital Signs Vital signs: Temp Pulse Resp BP Pulse Ox 98.6 F 121 H 18 129/85 H 97 09/06/20 09:33 09/06/20 09:33 09/06/20 09:33 09/06/20 09:33 09/06/20 09:33
[2020-09-06] MEDS ORDERED: ONDANSETRON HCL INJ/PF 4 MG/2 ML SDV IV ONE ×2 (10:27→12:33)
[2020-09-06 10:49] LABS: APPEARANCE,URINE SLIGHTLY-CLOUDY; BILIRUBIN,URINE NEGATIVE (NEGATIVE); COLOR,URINE YELLOW; GLUCOSE, URINE NEGATIVE (NEGATIVE); KETONES,URINE NEGATIVE (NEGATIVE); LEUKOCYTE ESTERASE,URINE TRACE (NEGATIVE); NITRITE,URINE NEGATIVE (NEGATIVE); PROTEIN,URINE 30 mg/dL (NEGATIVE); URINE SPECIFIC GRAVITY 1.017; UROBILINOGEN,URINE NEGATIVE mg/dL (<2.0)
--- NOTE | 2020-09-06 11:08 | ER Document Report ---
ED General - General Chief Complaint: Nausea/Vomiting/Diarrhea Stated Complaint: nausea, diarrhea, loss taste/smell Time Seen by Provider: 09/06/20 10:05 Notes: 34-year-old woman presents to the emergency department a history of nausea and vomiting, no diarrhea with loss of taste and smell. She is concerned she may have contracted the coronavirus. She has had no direct contact with a known positive however she has felt hot and cold fatigue and weakness. She is very anxious, recently treated for urinary tract infection with Macrobid and metronidazole. Completed both medications yesterday. Presently she denies nausea and vomiting and very tearful in her recalling the symptoms and concern for her family. TRAVEL OUTSIDE OF THE [place] IN LAST 30 DAYS: No - Related Data Allergies/Adverse Reactions: amitriptyline [From Elavil] Allergy (Verified 09/06/20 10:05) aripiprazole [From Abilify] Allergy (Verified 09/06/20 10:05) mirtazapine [From Remeron] Allergy (Verified 09/06/20 10:05) pregabalin [From Lyrica] Allergy (Verified 09/06/20 10:05) tramadol Allergy (Verified 09/06/20 10:05) Past Medical History - General Information source: Patient - Social History Smoking Status: Current Every Day Smoker Chew tobacco use (# tins/day): No Frequency of alcohol use: None Family History: COPD Patient has homicidal ideation: No Pulmonary Medical History: Reports: Hx Asthma Neurological Medical History: Reports: Hx Seizures Renal/ Medical History: Denies: Hx Peritoneal Dialysis GI Medical History: Reports: Hx Cirrhosis, Hx Gastroesophageal Reflux Disease, Hx Hepatitis Musculoskeletal Medical History: Reports Hx Arthritis Psychiatric Medical History: Reports: Hx Depression Infectious Medical History: Reports: Hx Hepatitis Past Surgical History: Reports: Hx Section - X 3, Hx Hysterectomy Review of Systems - Review of Systems Notes: Constitutional: +Anxiety HENT: Negative for sore throat. Eyes: Negative for visual changes. Cardiovascular: Negative for chest pain. Respiratory: Negative for shortness of breath. Gastrointestinal: See HPI. Genitourinary: Negative for dysuria. Musculoskeletal: Negative for back pain. Skin: Negative for rash. Neurological: Negative for headaches, weakness or numbness. 10 point ROS negative except as marked above and in HPI. Physical Exam - Vital signs Vitals: Temp Pulse Resp BP Pulse Ox 98.6 F 121 H 18 129/85 H 97 09/06/20 09:33 09/06/20 09:33 09/06/20 09:33 09/06/20 09:33 09/06/20 09:33 - Notes Notes: PHYSICAL EXAMINATION: Physical Exam: General: Well-nourished well-developed 34-year-old female in no acute distress HEENT: NC/AT, pupils equal round and reactive to light, MM moist,nares clear, oropharynx clear, airway patent Neck: supple, no adenopathy, no masses. Good range of motion Lungs: clear, no wheezing, no rales no rhonchi CVS: Regular rate and rhythm no murmur gallop or rub Abdomen: Soft, active, nontender, no masses, no hepatosplenomegaly Ext: No edema, clubbing or cyanosis. Neuro: Alert and responsive, moving all 4 extremities on command, cranial nerves intact, no focal findings Skin: Intact no open lesions, no rash PSYCH: Normal mood, normal affect. Course - Re-evaluation Re-evalutation: 09/06/20 13:51 Patient has had some improvement after the IV Zofran and a swab for coronavirus was obtained. Urine is revealed a few white blood cells, a culture was obtained taking, she is asymptomatic, she is just completed a course of Macrobid and metronidazole. I question whether her symptoms may related to these 2 medications that she completed the medications today. She is asked to self quarantine, she is given a prescription for Zofran and will follow-up as needed. - Vital Signs Vital signs: Temp Pulse Resp BP Pulse Ox 98.6 F 121 H 18 129/85 H 97 09/06/20 09:33 09/06/20 09:33 09/06/20 09:33 09/06/20 09:33 09/06/20 09:33 - Laboratory Result Diagrams: 09/06/20 11:10 09/06/20 11:10 Laboratory results interpreted by me: 09/06/20 09/06/20 09/06/20 10:28 11:10 11:10 WBC 3.0 L Plt Count 455 H Absolute Neuts (auto) 1.6 L Carbon Dioxide 31 H Glucose 111 H Total Protein 6.1 L Urine Protein 30 H Ur Leukocyte Esterase TRACE H 09/06/20 13:52 I have reviewed laboratory data and used this information for the treatment decisions regarding the patient. Discharge - Discharge Clinical Impression: Suspected COVID-19 virus infection Nausea and vomiting Qualifiers: Vomiting type: unspecified Vomiting Intractability: unspecified Qualified Code(s): R11.2 - Nausea with vomiting, unspecified Disposition: HOME, SELF-CARE Instructions: COVID-19 Guidance for Persons Under Investigation, Antinausea Medication ([facility]) Additional Instructions: You were seen in the emergency department today with nausea and vomiting and fatigue. Because of your concerns and due to the pandemic a coronavirus test was obtained. Please self quarantine and follow the directions regarding a person of interest for a coronavirus infection. Use Zofran as prescribed for nausea, push fluids, you may use Tylenol or ibuprofen for any aches or pains/headache. Follow-up with your primary care doctor as needed HOME CARE INSTRUCTIONS & INFORMATION: Thank you for choosing us for your medica l needs. We hope you're satisfied with the care you received. After you leave, you must properly care for your problem and, at the same time, observe its progress. Any condition can change. Some illnesses can change rapidly over hours or days. If your condition worsens, return to the Emergency Department or see your physician promptly. ABOUT YOUR X-RAYS AND EKG'S: If you had an EKG or X-rays taken, they have been read by the Emergency Physician. The X-rays and EKG's will also be read by a Radiologist or Branch Examiner within 24 hours. If discrepancies are noted, you will be notified by telephone. Please be certain the ED has a correct telephone number & address where you can be reached. Also, realize that some fractures or abnormalities do not show up on initial X-rays. If your symptoms continue, see your physician. ABOUT YOUR LABORATORY TEST: If you had laboratory tests, the results have been reviewed by the Emergency Physician. Some test results (for example cultures) may not be available for several days. You will be contacted if any test result shows you need additional treatment. Please be certain the ED has a correct telephone number and address where you can be reached. ABOUT YOUR MEDICATIONS: You will receive instructions on how to take your medicine on the prescription label you receive. Additional information may be provided by the Pharmacy. If you have questions afterwards, call the ED for clarification or further instructions. Some prescribed medications may cause drowsiness. Do not perform tasks such as driving a car or operating machinery without consulting your Pharmacist. If you feel you need a refill of pain medication, your condition will need re-evaluation. Please do not call for a refill of any medication. ABOUT YOUR SIGNATURE: Signature of this document acknowledges to followin. Understanding that you received emergency treatment and that you may be released before al medical problems are known or treated. Please be certain the ED has a correct phone number & address where you can be reached. 2. Acknowledgement that you will arrange for follow-up care as recommended. 3. Authorization for the Emergency Physician to provide information to your follow-up Physician in order to maximize your care. AT ANY TIME, IF YOUR SYMPTOMS CHANGE SIGNIFICANTLY OR WORSEN OR YOU DEVELOP NEW SYMPTOMS, RETURN TO THE EMERGENCY DEPARTMENT IMMEDIATELY FOR RE-EVALUATION. OUR GOAL IS TO PROVIDE EXCELLENT MEDICAL CARE! WE HOPE THAT WE HAVE MET YOUR EXPECTATIONS DURING YOUR EMERGENCY DEPARTMENT VISIT AND THAT YOU FEEL YOU HAVE RECEIVED EXCELLENT CARE! Prescriptions: Ondansetron [Zofran Odt 4 mg Tablet] 1 - 2 tab PO Q4H PRN #10 tab.rapdis PRN Reason: For Nausea/Vomiting
[2020-09-06 11:53] LABS: ABSOLUTE MONOCYTES (AUTO) 0.3 10^3/uL (0.1-1.4); ABSOLUTE NEUT (AUTO) 1.6 10^3/uL (1.7-8.2); BASOPHILS % (AUTO) 1.1 % (0-2); EOSINOPHILS % (AUTO) 1.5 % (0-6); HEMATOCRIT 36.7 % (36.0-47.0); HEMOGLOBIN 12.6 g/dL (12.0-15.5); LYMPHOCYTES % (AUTO) 32.9 % (13-45); MEAN CORPUSCULAR HGB CONC 34.3 g/dL (32.0-36.0); MEAN CORPUSCULAR VOLUME 90 fl (80-97); MONOCYTES % (AUTO) 10.7 % (3-13); PLATELET COUNT 455 10^3/uL (150-450); RED BLOOD COUNT 4.07 10^6/uL (3.72-5.28); RED CELL DISTRIBUTION WIDTH 12.4 % (11.5-14.0); SEGMENTED NEUTROPHILS % (AUTO) 53.8 % (42-78); TOTAL CELLS COUNTED % (AUTO) 100 %
[2020-09-06 12:11] LABS: A TYPE INFLUENZA AG NEGATIVE (NEGATIVE); B INFLUENZA AG NEGATIVE (NEGATIVE)
[2020-09-06 12:28] LABS: ALBUMIN 3.7 g/dL (3.5-5.0); ALKALINE PHOSPHATASE 58 U/L (38-126); ANION GAP 9 (5-19); ASPARTATE AMINO TRANSFERASE 27 U/L (14-36); BILIRUBIN,DIRECT 0.2 mg/dL (0.0-0.4); BILIRUBIN,TOTAL 0.2 mg/dL (0.2-1.3); BLOOD UREA NITROGEN 12 mg/dL (7-20); CALCIUM 9.1 mg/dL (8.4-10.2); CARBON DIOXIDE 31 mmol/L (22-30); CHLORIDE 99 mmol/L (98-107); GLUCOSE 111 mg/dL (75-110); POTASSIUM 4.1 mmol/L (3.6-5.0); TOTAL PROTEIN 6.1 g/dL (6.3-8.2)
[2020-09-06 14:06] VITALS: BP 113/63
== END 2020-09-06 14:27 | disposition home or self-care (01) ==
LOC: ER 09:26
DX: R11.2 Nausea with vomiting, unspecified (principal); R19.7 Diarrhea, unspecified; F41.9 Anxiety disorder, unspecified; F17.200 Nicotine dependence, unspecified, uncomplicated; Z20.828 Contact with and (suspected) exposure to other viral communicable diseases
CPT/HCPCS: 99284; 96361; 96374; 36415; 87086; 84703; 85025; 87635; 80053; 81001; 87804; J2405; J7030; C9803